=== PATIENT | male | born 1950 | race Caucasian/White ===

== ENCOUNTER 2018-07-10 21:45 | Inpatient (IN) | payer BC, MEDICARE ==
[2018-07-10 22:11] LABS: #Eosinphils 0.2 thou/uL (0.0-0.7); #Monocytes 0.7 thou/uL (0.11-0.59); #Neutrophils 5.4 thou/uL (1.40-6.50); %Basophils 0.5 % (0.0-1.0); %Eosinophils 2.2 % (0.0-10.0); %Lymphocytes 23.8 % (21.0-51.0); %Monocytes 8.9 % (0.0-10.0); %Neutrophils 64.6 % (42.0-75.0); Hemoglobin 15.4 g/dL (14.0-18.0); Mean Corpuscular HGB CONC 36.2 g/dL (32.0-36.0); Mean Corpuscular Hemoglobin 34.8 pg (27.0-31.0); Mean Corpuscular Volume 96.1 fL (78.0-98.0); Mean Platelet Volume 9.4 fL (7.4-10.4); Platelet Count 150 thou/uL (130-400); RBC Distribution Width 12.3 % (11.5-14.5); Red Blood Cell (RBC) Count 4.43 mill/uL (4.70-6.10); White Blood Cell (WBC) Count 8.3 thou/uL (4.8-10.8)
[2018-07-10 22:17] LABS: PTT 26.1 SEC (22.9-36.1); Prothrombin Time 12.9 SEC (12.0-14.7)
--- NOTE | 2018-07-10 22:17 | CT ---
CT HEAD WITHOUT CONTRAST: 07/10/18 Multiple axial tomograms obtained through the head without IV enhancement. INDICATIONS: Possible stroke. No comparison. FINDINGS: There is a predominantly cystic mass in the left cerebral hemisphere which appears centered in the le ft basal ganglia measuring up to 3.7 cm. There is internal density which suggests internal hemorrhage . Possible some peripheral hemorrhage. There is abnormal density extending inferior to involve the me dial temporal lobe. There is vasogenic edema primarily involving the left frontal lobe. There is mass effect with midline shift measured at 4 mm at the septum pellucidum. Sinuses and mastoids are clear. IMPRESSION: Mass in the left cerebral hemisphere which is centered in the left basal ganglia with surrounding vas ogenic edema and internal hemorrhage and extension into the left medial temporal lobe producing mass effect and mild midline shift. MRI with contrast is recommended to further evaluate. Findings relayed to Dr. De Jesus. POS: [facility]
[2018-07-10] MEDS ORDERED: Dexamethasone 10 MG/ML VIAL ONE (22:21)
[2018-07-10 22:35] LABS: ALT (SGPT) 57 U/L (8-55); AST (SGOT) 58 U/L (5-34); Albumin 4.2 g/dL (3.4-4.8); Alkaline Phosphatase 85 U/L (40-150); Anion Gap 19 mmol/L (10-20); BUN (Urea Nitrogen) 14 mg/dL (8.4-25.7); Bilirubin, Total 0.9 mg/dL (0.2-1.2); CK (CPK) 123 U/L (30-200); Calc. Creatinine Clearance 0 mL/min (70-130); Calcium 9.3 mg/dL (7.8-10.44); Carbon Dioxide 22 mmol/L (23-31); Chloride 99 mmol/L (98-107); Estimated GFR-MDRD 83; Glucose 100 mg/dL (80-115); Potassium 4.3 mmol/L (3.5-5.1); Protein, Total 7.2 g/dL (5.8-8.1); Sodium 136 mmol/L (136-145)
--- NOTE | 2018-07-10 22:35 | RAD ---
AP CHEST: 07/10/18 HISTORY: Weakness. Lungs appear clear of infiltrate. Heart size is upper normal. Vasculature upper normal. IMPRESSION: No acute lung process. POS: [facility]
[2018-07-10] MEDS ORDERED: Ondansetron PF 4 MG/2 ML Vial IVP PRN (22:56)
[2018-07-10] MEDS ORDERED: niCARdipine 25 MG in Sodium Chloride 0.9% 250 ML 240 ML IVPB PRN (22:56)
[2018-07-10] MEDS ORDERED: Acetaminophen 650 MG in Premix Bag 1 BAG IVPB PRN (23:01)
[2018-07-10 23:28] LABS: Bilirubin Negative (Negative); Blood, Urine Negative (Negative); Clarity CLEAR (Clear); Glucose, Urine (Dipstick) Negative (Negative); Leukocyte Negative (Negative); Nitrite Negative (Negative); Protein, Urine (Dipstick) Negative (Neg-Trace)
[2018-07-11] MEDS: Sodium Chloride 0.9% 1,000 ML IV SCH ×2 (00:15→13:23)
--- NOTE | 2018-07-11 03:05 | HP ---
This is Ling Queen PA-C dictating a report for Reji Rivera MD. HISTORY OF PRESENT ILLNESS: The patient is a 68-year-old male, who presented to the emergency room per EMS after being found down. History is primarily obtained per ER team, EMS and a family friend at the bedside. Reportedly patient was last heard from around 7:00 p.m. anderson and his family reports they noticed some slurred speech at that time. Not long after that, they sent up for a well check and the patient was found down on his back porch. He was brought by EMS to [facility] for further evaluation. On arrival, a CT noncontrast of the head was done, which was notable for a large left-sided cystic mass centered near the basal ganglia with surrounding vasogenic edema, hemorrhagic component and approximately 4 mm of midline shift from left to right. The patient's coagulation factors were normal and he had a normal platelet count. His GCS on arrival was 14. He lost 1 point for confusion. Neurosurgery was consulted for further evaluation and management of this patient. I presented to the emergency department promptly shortly after the patient's arrival. He was slightly confused, but was able to tell me his name and location. He had obvious right-sided facial droop and right-sided weakness, dysarthria and expressive aphasia. He was unable to express any particular complaints. He was able to nod his head yes and reports that he takes a baby aspirin at home. History was limited by the patient's current condition. PAST MEDICAL HISTORY: Per medical record, hypertension, hyperlipidemia. PAST SURGICAL HISTORY: No prior surgical history is listed. SOCIAL HISTORY: The patient is reportedly a daily drinker. Drinks approximately 12 beers daily. He is a tobacco user. Smokes one 1/2 pack per day. ALLERGIES: NO KNOWN DRUG ALLERGIES. REVIEW OF SYSTEMS: Unobtainable. PHYSICAL EXAMINATION: VITAL SIGNS: BP is 134/76, pulse 66, respirations 18, the patient is 96% on room air, his temperature is 98.1. CONSTITUTIONAL: The patient has GCS of 14. He loses 1 point for slight confusion. HEENT: Head, normocephalic and atraumatic. Eyes, pupils are equal and reactive to light. Extraocular movements are intact. ENT, his oral mucosa is pink and moist. He has abnormal speech. Dysarthria appreciated. Right-sided facial droop is noted. NECK: Free active range of motion. No meningismus or nuchal rigidity. CARDIOVASCULAR: Regular rate and rhythm. RESPIRATORY: Symmetric chest expansion. No evidence of dyspnea or respiratory distress. MUSCULOSKELETAL: He has good muscle tone to bilateral upper and lower extremity. Peripheral pulses are symmetric and intact. There is no obvious deformity. He has slight right-sided weakness in the right upper extremity, right lower extremity, which is diffuse. Drift is 1/4 on the right, in both the upper extremity and the lower extremity. He is generally hyporeflexive throughout. NEUROLOGIC: He is oriented to person and birthday. He is unable to tell me his location or the box car checker. He is noted to have dysarthria and expressive aphasia. He has right-sided facial droop and diffuse right-sided weakness. ASSESSMENT AND PLAN: This is a 68-year-old male, who was found to have acute speech changes and right-sided weakness, and found to have a left-sided intracranial mass centered on near the basal ganglia with surrounding vasogenic edema, hemorrhagic component, midline shift. He was treated with 10 mg of Decadron in the ER and I will continue this 4 to 6. I have added a famotidine b.i.d. for gastrointestinal protection. We will plan to admit to the CCU for q.1 neuro checks. Head of the bed will be elevated to 30 degrees and systolic blood pressure should be monitored closely with goal of less than 140. We will plan to evaluate this mass further with MRI of the brain with and without contrast. Also, repeat an a.m. CT to assess any change in the hemorrhagic component. I have ordered a CT of the chest, abdomen, and pelvis in addition to assess for any other additional lesions as this may indicate a metastatic lesion versus primary. I have consulted the hospitalist for assistance in medical management and critical care considering the patient is going to the ICU at this time. I have discussed this plan with Dr. Rivera, who is in agreement. Job ID: [id number]
[2018-07-11 04:41] LABS: #Monocytes 0.2 thou/uL (0.11-0.59); #Neutrophils 7.6 thou/uL (1.40-6.50); %Basophils 0.4 % (0.0-1.0); %Eosinophils 0.2 % (0.0-10.0); %Lymphocytes 11.3 % (21.0-51.0); %Monocytes 2.1 % (0.0-10.0); Mean Corpuscular HGB CONC 34.5 g/dL (32.0-36.0); Mean Corpuscular Volume 98.5 fL (78.0-98.0); Mean Platelet Volume 9.4 fL (7.4-10.4); Platelet Count 143 thou/uL (130-400); RBC Distribution Width 12.3 % (11.5-14.5); White Blood Cell (WBC) Count 8.9 thou/uL (4.8-10.8)
[2018-07-11 04:59] LABS: Anion Gap 16 mmol/L (10-20); BUN (Urea Nitrogen) 13 mg/dL (8.4-25.7); Calc. Creatinine Clearance 97 mL/min (70-130); Calcium 9.8 mg/dL (7.8-10.44); Carbon Dioxide 24 mmol/L (23-31); Chloride 101 mmol/L (98-107); Estimated GFR-MDRD 80; Glucose 119 mg/dL (80-115); Potassium 4.1 mmol/L (3.5-5.1); Sodium 137 mmol/L (136-145)
[2018-07-11] MEDS: Dexamethasone 4 mg/ml Vial SLOW IVP SCH ×3 (06:28→18:01)
--- NOTE | 2018-07-11 06:31 | CON ---
DATE OF CONSULTATION: CHIEF COMPLAINT: Right-sided weakness, slurred speech. HISTORY OF PRESENT ILLNESS: The patient is a 68-year-old male with past medical history of hypertension, hyperlipidemia, who presented to the hospital for a right-sided weakness and slurred speech. The patient's employer who is at the bedside stated that the patient took off since last Sunday since he was not feeling well. However, prior to that he had noticed the patient having some stiffness and also had some minor cognitive impairment. The patient's employer also stated that he has been checking up on the patient every day this week; however on the patient left his employer about 4 or 5 messages, which were similar and at that time, the employer was suspicious that there was something going on with the patient, so he came in to see the patient today. The employer described the patient standing on the porch, acting very strange with some slurred speech and the patient kept asking the employer to leave him alone and to leave. At this time, the employer left, called the son who was also concerned about the patient's slurred speech. At this time, the police were called and later on the EMS were called. It was also stated by the EMS that the patient had a fall on his back porch. The patient currently is awake, to self. PAST MEDICAL HISTORY: Hypertension, hyperlipidemia. PAST SURGICAL HISTORY: The patient unable to provide a surgical history, unknown. SOCIAL HISTORY: The patient drinks daily beer and also smokes half a pack of tobacco. He is unable to provide me the code status at this point. He lives with his , who is on a cruise with his daughter currently and the son lives in [place]. ALLERGIES: HE HAS NO KNOWN DRUG ALLERGIES. REVIEW OF SYSTEMS: Unable to obtain. FAMILY HISTORY: Unable to obtain. PHYSICAL EXAMINATION: VITAL SIGNS: Temperature of 98.1, blood pressure 134/76, pulse of 66, 18, 96% on room air. GENERAL: He is awake, oriented to self. He is confused. HEENT: Normocephalic, atraumatic. No lymphadenopathy noted. Pupils are equal and reactive to light. His tongue has a pretty significant black and hairy appearance. CV: S1, S2 present. No murmurs, rubs, or gallops. LUNGS: Clear to auscultation. No rhonchi or wheezes noted. ABDOMEN: Soft and nontender. Bowel sounds are present x2. NEUROVASCULAR: He does have some weakness to his right upper extremity and right lower extremity. He does have some facial droop on his right side. He knows who he is. He knows what month we are in and his birthday. However, he is unable to tell me the President and also he has some dysarthria and expressive aphasia. LABORATORY RESULTS: As of the following; WBCs of 8.9, hemoglobin of 16.0, hematocrit of 46.3, platelets of 143. Chemistry: Sodium 137, potassium of 4.1, BUN of 13, creatinine 0.94. Urine is negative. IMAGING: The patient did have a CT brain, which indicated mass in the left cerebrum hemisphere, which is centered in the left basal ganglia with surrounding vasogenic edema and internal hemorrhage and extension into the left medial temporal lobe producing mass effect and mild midline shift. The patient also had a chest x-ray, which did not indicate any acute processes. ASSESSMENT AND PLAN: 1. The patient is a very pleasant 68-year-old male, who presents to the hospital with slurred speech and right-sided weakness. Hypertension. Currently, his blood pressure is controlled. We will ask family to bring in the patient's blood pressure medication for further control per neurosurgery. 2. Hyperlipidemia. We will start his medications once family brings in his medications. 3. New left-sided cerebral mass. The patient has already been ordered a CT of abdomen and pelvis and also will be on Decadron and Neurosurgery has been consulted. We will also get an MRI brain in the morning. 4. Mild elevated liver function tests. We will recheck it in the morning. If not, may recommend checking hepatitis panel. 5. Deep venous thrombosis prophylaxis. We will put the patient on sequential compression devices. Job ID: [id number]
[2018-07-11 06:49] LABS: ALT (SGPT) 56 U/L (8-55); AST (SGOT) 48 U/L (5-34); Albumin 4.2 g/dL (3.4-4.8); Alkaline Phosphatase 85 U/L (40-150); Bilirubin, Direct 0.5 mg/dL (0.1-0.3); Protein, Total 7.1 g/dL (5.8-8.1)
--- NOTE | 2018-07-11 07:38 | CT ---
PRELIMINARY REPORT/[facility]/EMERGENCY AFTER HOURS PROCEDURE: EXAM: CT Head Without Contrast EXAM DATE/TIME: 07/11/2018 3:57 AM CLINICAL HISTORY: 68 years old, male; Abnormal findings; Abnormal radiologic findings of head/skull; Intracranial mass / space-occupying lesion; Patient HX: No previous. . . Initially brought to er as a level 1 stroke. . . Transfered to ccu c8. . . Additional history obtained from EMS, m69 presents to ED via EMS C/O possib le CVA. Per EMS, PT was found in a tipped over lawn chair on back porch w/ rue weakness, rsided facia l droop, and slurred speech. Lsn unknown; Last time PT spoke to someone was around 19:00 and PT did have slurred speech (son reports very minimally). EMS reports PT has progressed to g lobal aphasia but is a&ox4 and shaking head yes/no appropriately to questions. TECHNIQUE: Imaging protocol: Axial computed tomography images of the head without contrast. COMPARISON: No relevant prior studies available. FINDINGS: Brain: Mild thickening-hyperdensity 2.6 x 2.9 cm x 3 cm area of the medial cortex left temporal lobe. Mild prominence of the cerebral sulci and ventricles. Mild low density changes within the white matte r bilaterally. Cerebellum atrophic; otherwise, posterior fossa structures within normal limits. Midline shift: Mild approximately 4 mm [id number] midline shift at the level of the septum pelluci dum related to edema from hematoma. Ventricles: Normal. No ventriculomegaly. Bones/joints: Unremarkable. No acute fracture. Sinuses: Visualized sinuses are unremarkable. No fluid levels. Mastoid air cells: Visualized mastoid air cells are well aerated. No mastoid effusion. Soft tissues: Round 3.6 x 3.5 x 4.5 cm fluid-fluid level, hematoma within the right basal ganglia and mild surrounding edema, per patient history. IMPRESSION: 1. Round 3.6 x 3.5 x 4.5 cm fluid-fluid level, hematoma within the right basal ganglia and mild surro unding edema, per patient history. (Underlying mass cannot be entirely excluded, followup is recommen ded.) 2. Mild approximately 4 mm [id number] midline shift at the level of the septum pellucidum related to edema from hematoma. 3. Mild thickening-hyperdensity 2.6 x 2.9 cm x 3 cm area of the medial cortex left temporal lobe. -- Possible underlying mass. Followup with MRI is highly recommended for better evaluation. 4. Mild cerebral atrophy. 5. 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 Thank you for allowing us to participate in the care of your patient. Dictated and Authenticated by: Willian Kinsey MD 07/11/2018 4:39 AM Central Time ([place] & [place]) FINAL REPORT I disagree with the preliminary report provided. There is a large hypodense mass with a hemorrhage fluid level in the LEFT basal ganglia centered with in the LEFT globus pallidus with some mild surrounding vasogenic edema. There is an additional hyper dense mass within the atrium of the LEFT lateral ventricle that is stable measuring 4.3 cm. The hypo dense mass with hemorrhage layer measures 2.9 cm, when accounting for slight differences of technique is stable. An additional hyperdense cortically based mass is seen involving the inferior LEFT front al lobe measuring approximately 3 cm, which is stable with some surrounding vasogenic edema. The lef t to right midline shift is stable from the comparison performed on 07/10/2018 at 9:50 p.m. measuring approximately 4.3 to 4.4 mm. The basilar cisterns remain patent. The skull is intact. POS: [facility]
--- NOTE | 2018-07-11 07:48 | CT ---
PRELIMINARY REPORT/[facility]/EMERGENCY AFTER HOURS PROCEDURE: EXAM: CT Chest With Contrast EXAM DATE/TIME: 07/11/2018 4:03 AM CLINICAL HISTORY: 68 years old, male; Signs and symptoms; Other: Possible mass noted on brain CT, R/O metastatic lesion ; Patient HX: No previous. . . Initially brought to er as a level 1 stroke. . . Transfered to ccu c8. Additional history obtained from EMS, m69 presents to ED via EMS C/O possible CVA. Per EMS, PT was f ound in a tipped over lawn chair on back porch w/ rue weakness, r-sided facial droop, and slurred spe ech. Lsn unknown; Last time PT spoke to someone was around 19:00 and PT did have slurred speech (son reports very minimally). EMS reports PT has progressed to global aphasia but is a&ox4 and shaking hea d yes/no appropriately to questions. TECHNIQUE: Imaging protocol: Axial computed tomography images of the chest with intravenous contrast. Coronal re formatted images were created and reviewed. COMPARISON: No relevant prior studies available. FINDINGS: Lungs: No evidence endobronchial lesion. Mild bilateral lower lobe dependent air space opacityatelect asis/scarring. Pleural space: No evidence of pneumothorax. Heart: Heart appears within normal limits, no pericardial effusion. No evidence of filling defects in the cardiac chambers. Aorta: No evidence of thoracic aortic dissection. 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 Chronic atherosclerotic calcification of the vasculature. Lymph nodes: Few subcentimeter mediastinal lymph nodes. Bones/joints: Musculoskeletal structures appear intact. Multi-level degenerative changes involve the thoracic spine. Soft tissues: Unremarkable. Other findings: No evidence of focal mass. IMPRESSION: 1. No evidence of focal mass. 2. No evidence of thoracic aortic dissection. 3. 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 4. Mild bilateral lower lobe dependent air space opacity-atelectasis/scarring. EXAM: CT Abdomen and Pelvis With Contrast EXAM DATE/TIME: 07/11/2018 4:03 AM CLINICAL HISTORY: 68 years old, male; Signs and symptoms; Other: Possible mass noted on brain CT, R/O metastatic lesion ; Patient HX: No previous. . Initially brought to er as a level 1 stroke. Transfered to ccu c8. Addit ional history obtained from EMS, m69 presents to ED via EMS C/O possible CVA. Per EMS, PT was found i n a tipped over lawn chair on back porch w/ rue weakness, r-sided facial droop, and slurred speech. L sn unknown; Last time PT spoke to someone was around 19:00 and PT did have slurred speech (son report s very minimally). EMS reports PT has progressed to global aphasia but is a&ox4 and shaking head yes/ no appropriately to questions. TECHNIQUE: Imaging protocol: Axial computed tomography images of the abdomen and pelvis with intravenous contras t. Coronal reformatted images were created and reviewed. COMPARISON: No relevant prior studies available. FINDINGS: ABDOMEN: Liver: Suspected fatty infiltration of the liver. Gallbladder and bile ducts: Gallbladder appears contracted, limits evaluation. Pancreas: Normal. No ductal dilation. Spleen: Normal. No splenomegaly. Adrenals: Normal. No mass. Kidneys and ureters: Normal. No hydronephrosis. Stomach and bowel: Mild scattered colonic diverticulosis. No radiographic signs of associated inflamm ation. No evidence of bowel obstruction. Appendix: Appendix - visualized portions appear normal. PELVIS: Bladder: Unremarkable as visualized. Reproductive: Prostate appears within normal limits. ABDOMEN and PELVIS: Intraperitoneal space: Normal. No free air. No significant fluid collection. Bones/joints: No acute fracture. No dislocation. Soft tissues: Increased fat in bilateral inguinal canals- small inguinal hernias. Vasculature: Mild 2.6 cm ectasia infrarenal abdominal aorta. Lymph nodes: Normal. No enlarged lymph nodes. Other findings: No evidence of focal masses or lesions. IMPRESSION: 1. No evidence of focal masses or lesions. 2. Suspected fatty infiltration of the liver. 3. Mild scattered colonic diverticulosis. No radiographic signs of associated inflammation. 4. No evidence of bowel obstruction. Thank you for allowing us to participate in the care of your patient. Dictated and Authenticated by: Willian Kinsey MD 07/11/2018 4:42 AM Central Time ([place] & [place]) FINAL REPORT EMERGENCY AFTER HOURS CT CHEST AND ABDOMEN AND PELVIS: I disagree with the preliminary report provided by [facility]. There are minimally displaced right L3 and L2 transverse process fractures not discussed in the preli minary report. No focal pulmonary contusion is evident. There is a 9 mm pulmonary nodule within the superior segmen t of the right lower lobe. There is subsegmental volume loss involving both lungs. No pleural effus ion or pneumothorax is evident. There is scattered vascular calcification along the thoracic and cor onary arteries. No enlarged mediastinal lymph nodes are evident. No definite solid organ injury is seen involving the abdomen or pelvis. No free fluid or enlarged ly mph nodes are evident. There are moderate calcifications involving the abdominopelvic vasculature. There are scattered colonic diverticula. No additional acute abnormality is evident outside of the right L3 and L2 transverse processes. Ther e is scattered and osteoarthritic change. IMPRESSION: 1. Right L2 and L3 transverse process fracture. No additional traumatic injury demonstrated. 2. A 9 mm pulmonary nodule within the superior segment of the right lower lobe. 3. Bilateral bibasilar atelectasis. Other chronic findings as above. POS: [facility]
--- NOTE | 2018-07-11 08:57 | MRI ---
MRI Brain W WO Con: 07/11/2018 12:00 AM CLINICAL HISTORY: Intracranial lesions, neurologic deficit.. COMPARISON: Recent head CT exams are referenced. FINDINGS: Multifocal intracranial enhancing lesions are present, one of which is centered at the left middle cr anial fossa, with avid enhancement, axial diameter of which measures 2.9 cm producing adjacent vasogenic edema at its cephalad margin, within the left frontal lobe. There is an additional cortical based medial left temporal lobe lesion, lobular in morphology, with avid enhancement, with largest axial dimension in an AP orientation of 4.3 cm. These lesions demonstrate internal stippled susceptib ility artifact. There is adjacent mild intraventricular hemorrhagic susceptibility, as well. In addition to these lesions, there is an intra-axial rounded cavitary, hemorrhagic lesion with peripher al enhancement, as well as subtle areas of internal enhancement, measuring 3.4 cm in largest axial diameter, situated within the left basal ganglia. This does result in rightward deviation of midline structures, measuring 5 mm at level of septum pellucidum. Superimposed microvascular ischemic disease is present. There is no acute territorial infarction. Abo ve-described solid lesions demonstrate mild restriction. IMPRESSION: Multifocal intracranial lesions occupying left cerebral hemisphere with associated hemorrhage, indica tive of hemorrhagic metastases. There is associated mass effect, with rightward subfalcine herniation as well as mild intraventricular hemorrhagic extension. Transcribed Date/Time: 07/11/2018 9:09 AM
[2018-07-11] MEDS: Famotidine/PF 20 mg/2ml Vial SLOW IVP SCH ×2 (09:50→20:10)
--- NOTE | 2018-07-11 11:05 | PDOC.PULCN ---
Pulmonology Consult: HPI - Date of Consult Date: 07/11/18 Time: 08:45 - Consult Details Reason for Consult: Critical Care Management - History of Present Illness HPI: SANJU BENNETT JR is a 68 year-old M who came to ER after finding him down yesterday. Pt has hard time with word finding. Unable to get full history. Obtained hx from previous documents and family. Pt family stated that he had some slurred speech. Pt reports not feeling well the last week. Per history from his employer on other history he had noticed maybe some lapse in thought and noticed some stiffness the last week. He had been checking on him and noticed him acting strange and having slurred speech. Pt is up in bed. He denies any chest pain or SOB. Pt denies any abdominal pain. Denies any n/v/d/c. Pt denies any fever or chills. Pulmonology Consult: ROS - Review of Systems All systems: reviewed and no additional remarkable complaints except as stated Constitutional: negative: fever, chills Cardiovascular: negative: chest pain, palpitations Respiratory: negative: cough, chest tightness, productive cough, short of breath Pulmonology Consult: PMH Source: patient, family Past Medical History: PMH: Hypertension, Hyperlipidemia, Chronic Pain PShx: Knee Surgery - Family History Pertinent family history: Noncontributory at this time - Social History Smoking Status: Current every day smoker (1/2 pack) Alcohol Use: heavy (12 beers daily) Drug Use History: pt denies any use Living Situation: independent Pulmonology Consult: Meds - Medications MAR Reviewed: Yes Medications: Current Medications Dexamethasone (Decadron) 4 mg SLOW IVP Q6HR [facility] Last Admin: 07/11/18 06:28 Dose: 4 mg Famotidine (Pepcid) 20 mg SLOW IVP Q12HR [facility] Last Admin: 07/11/18 09:50 Dose: 20 mg Acetaminophen 650 mg/ Device 65 mls @ 400 mls/hr IVPB Q6H PRN PRN Reason: Fever > 101 Stop: 07/11/18 23:02 Nicardipine HCl 25 mg/ Sodium (Chloride) 250 mls @ 0 mls/hr IVPB INF PRN; Protocol PRN Reason: SBP >140 Sodium Chloride (Normal Saline 0.9%) 1,000 mls @ 80 mls/hr IV .[id number] [facility] Last Admin: 07/11/18 00:15 Dose: 1,000 mls Ondansetron HCl (Zofran) 4 mg IVP BIDPRN PRN PRN Reason: Nausea/Vomiting Sodium Chloride (Flush - Normal Saline) 10 ml IVF PRN PRN PRN Reason: Saline Flush - Allergies Allergies/Adverse Reactions: Allergies Allergy/AdvReac Type Severity Reaction Status Date / Time No Known Drug Allergies Allergy Unverified 07/10/18 23:07 Pulmonology Consult: PE - Physical Exam Constitutional: NAD HEENT: PERRLA, oral pharynx no lesions Neck: no nodes, no JVD, supple, full ROM Cardiovascular: RRR, no significant murmur, no rub Respiratory: rhonchi Focused Respiratory Location: rhonchi: Lower, Left, Right Gastrointestinal: soft, non-tender, no distention, positive bowel sounds Musculoskeletal: no edema, pulses present Neurological: normal sensation. negative: non-focal (Pt able to follow commands. Pt has hard time with word finding. Unable to fully answer questions at times. Speech slurred.), moves all 4 limbs (Pt moves all 4 limbs. Pt slower to move Right side leg and arm. Strenght 4/5 in RUE and RLE.) Deviation from normal: Pt has R. sided facial droop. Sensation reported intact face/LE/UE Psychiatric: normal affect, A&O x 3 Skin: no rash, cap refill <2 seconds Pulmonology Consult: Results - Labs Result Diagrams: 07/11/18 04:26 07/11/18 04:26 - EKG Data EKG Interpreted by Myself EKG shows normal: sinus rhythm Rate: normal - Radiology Interpretation CT scan - head Status: image reviewed by me, report reviewed by me (Mass in L. cerebral hemisphere which is centered in the left basal ganglia w/ surrounding vasogenic edema and internal hemorrhage and extension into the left medial temporal lobe producing mass effect and mild midline shift) CT scan - chest Status: image reviewed by me, report reviewed by me Additional comments: No evidence of focal mass, thoracic aortic dissection. 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 Mild bilateral lower lobe dependent air space opacity- atelectasis/scarring. A 9 mm pulmonary nodule w/n superior segment of RLL. Bilateral Bibasilar atelectasis. R. L2-L3 transverse process fx. Chest x-ray Status: image reviewed by me, report reviewed by me (No acute process) CT scan - abdomen Status: image reviewed by me, report reviewed by me Additional comments: No evidence of focal masses or lesion, Suspected fatty infiltration of the liver , Mild scattered colonic diverticulosis. No evidence bowel obstruction Pulmonology Consult: A/P - Problem (1) Neoplasm of brain causing mass 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 structures Current Visit: Yes Code(s): D49.6 - NEOPLASM OF UNSPECIFIED BEHAVIOR OF BRAIN Status: Acute (2) Hypertension Current Visit: Yes Code(s): I10 - ESSENTIAL (PRIMARY) HYPERTENSION Status: Acute (3) Hyperlipidemia Current Visit: Yes Code(s): E78.5 - HYPERLIPIDEMIA, UNSPECIFIED Status: Acute (4) Tobacco abuse Current Visit: Yes Code(s): Z72.0 - TOBACCO USE Status: Acute (5) Alcohol abuse Current Visit: Yes Code(s): F10.10 - ALCOHOL ABUSE, UNCOMPLICATED Status: Acute - Time Time: 50% of the time was spent in coordination of care (as documented) at patient's floor/unit and/or counseling patient. Time with Patient: greater than 70 minutes - Plan Plan: New left sided cerebal mass with hemorrhage and mass effect. Pt on dexamethasone to help with swelling. On cardene drip to control blood pressures w/n parameters for Neurosurgery. Neurosurgery consulted. Pt recently had MRI. Read pending. Official read of CT scan shows 9 mm Pulm nodule. May need to biopsy. For his hypertension being controlled per above. Will give famotidine for GI ppx. PT/OT/Speech on board. Pt will need q1 neurochecks and close monitoring for the time being. Addendum - Attending - Attending Attestation Date/Time: 07/11/18 1500 I personally evaluated the patient and discussed the management with Dr. Storey. I agree with the History, Examination, Assessment and Plan documented above with any addition or exceptions noted below. IPH, stable. Interracial mass, currently under investigation. 70 minutes have been devoted to this patient in various activities. I personally reviewed all imaging studies and laboratory data noted within this document. For fifty percent of this time, I was interacting with the patient at the bedside or coordinating care with the care team. For the remainder of the time I was immediately available to the patient in the hospital unit.
--- NOTE | 2018-07-11 16:44 | PRG ---
DATE OF SERVICE: SUBJECTIVE: The patient is seen and examined. I agree with Ling Bret's evaluation on 07/10/2018. The patient is a 68-year-old man admitted for relatively sudden onset of dysphagia and right hemiparesis. PHYSICAL EXAMINATION: Today, he is alert and interactive, but is disoriented to date and has poor word finding. He has a moderate right hemiparesis. IMAGING STUDIES: Including a recent MRI scan reveals 3 intracranial lesions on the left side. The middle lesion is in the region of the basal ganglia and shows evidence of acute hemorrhage with some local mass effect. There are some signs of chronic hemorrhage in all [address] of the chest, abdomen, and pelvis was negative. IMPRESSION AND PLAN: The patient has 3 intracranial lesions all of which are partially hemorrhagic and he is currently symptomatic from some new hemorrhage in the central lesion. Differential diagnosis includes metastatic disease or unusual primary tumor. Metastatic disease is far more likely. Given the failure of the CT chest, abdomen, and pelvis to find a primary lesion, I expect we will need to proceed with stereotactic biopsy. I would like to wait several days for him to recover from this recent hemorrhagic episode, for his aspirin to wear off, and for his family to get back in town from a cruise that they are on. We will continue with Decadron for now and begin a swallow evaluation and see if we can advance his diet. We will also transfer to the floor. Job ID: [id number]
[2018-07-11] MEDS ORDERED: niCARdipine 25 MG in Sodium Chloride 0.9% 250 ML 240 ML IVPB PRN (20:52)
[2018-07-12] MEDS: Sodium Chloride 0.9% 1,000 ML IV SCH ×2 (00:43→05:04)
[2018-07-12] MEDS: Dexamethasone 4 mg/ml Vial SLOW IVP SCH ×4 (00:44→17:50)
[2018-07-12] MEDS: Famotidine/PF 20 mg/2ml Vial SLOW IVP SCH ×2 (09:14→22:37)
--- NOTE | 2018-07-12 10:07 | PRG ---
DATE OF SERVICE: 07/12/2018 The patient is a 68-year-old male, who was recently admitted for acute onset presbyphagia and right-sided hemiparesis. His MRI was notable for three intracranial lesions, suspicious for metastatic disease. CT chest, abdomen, and pelvis was all negative. He has been monitored closely in the ICU and has had some improvement in symptoms with IV Decadron. He has been intermittently required Cardene for BP control. On exam this morning, the patient is in awake and alert. He is oriented to person and his birthday. He has difficulty with word-finding. He continues to have some mild right-sided hemiparesis, but this appears improved today compared to my prior exams. We will plan to continue to monitor the patient closely. Continue his Decadron 4 mg q.6h, protection with famotidine. Once his blood pressure is well controlled and off Cardene, he could be transferred to the ICU or to the floor. If he goes to the floor, he will likely require sitter due to his impulsivity. Medical Service is assisting with his blood pressure and other medical management. We will plan to do a left-sided stereotactic brain biopsy of his lesions on Sunday. I have ordered consent and he will be made n.p.o. at midnight on Sunday. Job ID: [id number]
--- NOTE | 2018-07-12 12:18 | PRG ---
DATE OF SERVICE: 07/12/2018 SERVICE: Pulmonary Medicine. INTERVAL HISTORY: The patient is doing fine from respiratory standpoint. Breathing comfortably. He has no complaints of chest pain, fevers, chills, cough, nausea , or vomiting. He has a good appetite. Otherwise, there has been no interval change to his condition. He feels that neurologic deficit is roughly stable if not slightly improved. PHYSICAL EXAMINATION: VITAL SIGNS: Afebrile, pulse 73, blood pressure 124/70, respirations 17, and saturation 95% on room air. GENERAL: The patient is awake and alert, in no apparent distress. LUNGS: Decent air entry without any prolonged expiratory phase or wheezing present. HEART: Normal rate and regular. ABDOMEN: Soft, nontender, nondistended. Bowel sounds are positive. MUSCULOSKELETAL: No cyanosis or clubbing. No pitting in the bilateral lower extremities. NEUROLOGIC: He has hemiparesis on the right upper and lower extremity, and some difficulty with speech. Otherwise, he remains oriented x3. IMAGING DATA: MRI of the brain demonstrates multifocal intracranial lesions occupying the left cerebral hemisphere with hemorrhagic transformation and associated mass effect and mild herniation of the subfalcine region. CT of the chest, abdomen, and pelvis did not demonstrate any obvious primary site. There is an incidentally discovered small pulmonary nodule. ASSESSMENT: 1. Intracranial mass. 2. Intraparenchymal hemorrhage. DISCUSSION AND PLAN: The patient is going to be transitioned to the Stroke Unit. When he arrives in the stroke unit, he will have no further requirements for inpatient Pulmonary or Critical Care opinion, I will sign off. Please call with additional questions or concerns through time. Job ID: [id number] [facility]
--- NOTE | 2018-07-12 16:37 | PDOC.PN ---
- Subjective Encounter Start Date: 07/12/18 Encounter Start Time: 10:00 Pt seen for followup re: brain metastases. says he feels well, no complaints. - Objective MAR Reviewed: Yes Vital Signs & Weight: Vital Signs (12 hours) Temp Pulse Ox 07/12/18 12:00 98.0 F 07/12/18 08:00 97.9 F 95 Weight Weight 201 lb 0.985 oz Most Recent Monitor Data Heart Rate from ECG 64 NIBP 128/72 NIBP BP-Mean 90 Respiration from ECG 9 SpO2 93 I&O: 07/11/18 07/12/18 07/13/18 06:59 06:59 06:59 Intake Total 417 2094 540 Output Total 500 2090 690 Balance -83 4 -150 Result Diagrams: 07/11/18 04:26 07/11/18 04:26 EKG Reviewed by me: Yes (Tele: NSR) Phys Exam - Physical Examination Constitutional: NAD HEENT: moist MMs Neck: supple Respiratory: clear to auscultation bilateral Cardiovascular: RRR Gastrointestinal: soft Neurological: moves all 4 limbs Psychiatric: normal affect Dx/Plan (1) Neoplasm of brain causing mass 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 structures Code(s): D49.6 - NEOPLASM OF UNSPECIFIED BEHAVIOR OF BRAIN Status: Acute Comment: Pt to have stereotactic biopsy next week. Pt has lung nodule, also has h/o melanoma. (2) Hypertension Code(s): I10 - ESSENTIAL (PRIMARY) HYPERTENSION Status: Chronic Comment: BP improved, off of Cardene drip. Resume home medications, monitor vital signs and titrare antihypertensives as needed. (3) Hyperlipidemia Code(s): E78.5 - HYPERLIPIDEMIA, UNSPECIFIED Status: Chronic Comment: continue atorvastatin - Plan * . Review of Systems - Review of Systems Cardiovascular: negative: chest pain, palpitations, orthopnea, paroxysmal nocturnal dyspnea, edema, light headedness Gastrointestinal: negative: Nausea, Vomiting, Abdominal Pain, Diarrhea, Constipation, Melena, Hematochezia - Medications/Allergies Allergies/Adverse Reactions: Allergies Allergy/AdvReac Type Severity Reaction Status Date / Time No Known Drug Allergies Allergy Unverified 07/10/18 23:07 Medications: Current Medications Allopurinol (Zyloprim) 200 mg PO DAILY [facility] Amlodipine Besylate (Norvasc) 10 mg PO DAILY [facility] Atorvastatin Calcium (Lipitor) 40 mg PO DAILY [facility] Dexamethasone (Decadron) 4 mg SLOW IVP Q6HR [facility] Last Admin: 07/12/18 13:00 Dose: 4 mg Famotidine (Pepcid) 20 mg SLOW IVP Q12HR [facility] Last Admin: 07/12/18 09:14 Dose: 20 mg Hydrochlorothiazide (Hydrochlorothiazide) 12.5 mg PO DAILY [facility] Sodium Chloride (Normal Saline 0.9%) 1,000 mls @ 80 mls/hr IV .[id number] [facility] Last Admin: 07/12/18 05:04 Dose: 1,000 mls Nicardipine HCl 25 mg/ Sodium (Chloride) 250 mls @ 0 mls/hr IVPB INF PRN; Protocol PRN Reason: SBP >140 Cefazolin Sodium/Dextrose 2 gm (/ Device) 50 mls @ 100 mls/hr IVPB ONCALL-OR [facility] Stop: 07/15/18 17:00 Cefazolin Sodium/Dextrose 2 gm (/ Device) 50 mls @ 100 mls/hr IVPB Q8HR [facility] Stop: 07/15/18 22:29 Nebivolol (Bystolic) 10 mg PO DAILY [facility] Ondansetron HCl (Zofran) 4 mg IVP BIDPRN PRN PRN Reason: Nausea/Vomiting Sodium Chloride (Flush - Normal Saline) 10 ml IVF PRN PRN PRN Reason: Saline Flush
[2018-07-13] MEDS: Sodium Chloride 0.9% 1,000 ML IV SCH ×2 (00:22→11:47)
[2018-07-13] MEDS: Dexamethasone 4 mg/ml Vial SLOW IVP SCH ×4 (00:22→18:55)
[2018-07-13] MEDS: Famotidine/PF 20 mg/2ml Vial SLOW IVP SCH ×2 (09:26→21:17)
[2018-07-13] MEDS: Allopurinol 100 MG TAB PO SCH (09:27)
[2018-07-13] MEDS: Nebivolol HCl 5 MG TAB PO SCH (09:27)
[2018-07-13] MEDS: Hydrochlorothiazide 25 MG TAB PO SCH (09:27)
[2018-07-13] MEDS: Amlodipine 10 MG TAB PO SCH (09:29)
[2018-07-13] MEDS: Atorvastatin Calcium 40 MG TAB PO SCH (09:30)
--- NOTE | 2018-07-13 10:12 | PRG ---
DATE OF SERVICE: 07/13/2018 Mr. Fernández is seen in his hospital room this morning. There is a sitter in the room. He has no complaints, but he also has some difficulty with expressive language function. His temperatures overnight do not show any fevers. His blood pressures have been in the 120s to 140s. Mr. Fernández is awake. He responds to statements and questions with a simple one-word answer when I ask for more in-depth communication, it is difficult for him to get all of his thoughts translated into comprehensible sentences. There is some right-sided hemiparesis. Left side is working well and quite purposeful. Imaging has revealed enhancing lesions in the left hemisphere, one of which is hemorrhagic. Dr. Rivera is planning a surgical intervention on Mr. Fernández for Sunday. I do not see any family here to discuss our findings. We will continue to monitor him over the weekend and keep him n.p.o. after midnight on Sunday and order antibiotics for his surgery. Job ID: [id number] MTDD
--- NOTE | 2018-07-13 12:02 | PRG ---
DATE OF SERVICE: 07/13/2018 SUBJECTIVE: This morning, he is awake, alert, and responsive. His MRI showed multifocal intracranial lesions, occupying the left cerebral hemisphere, with associated hemorrhage, so it is a metastatic disease. He is to undergo surgical intervention on Sunday. He denies any coughing or difficulty breathing. By a pulmonary guidry, he is stable. OBJECTIVE: VITAL SIGNS: Saturations are 98% on room air, pulse 58, temperature 98, blood pressure 120/63, respiratory rate 18. CHEST: No wheezing or crackles. CARDIAC: Normal S1 and S2. No gallops. ABDOMEN: No masses. IMPRESSION: Intracerebral mass, left hemisphere, hemorrhagic. Surgical intervention is planned for Sunday. Otherwise, continue supportive care, Decadron, and we will follow. Job ID: [id number]
--- NOTE | 2018-07-13 14:17 | PDOC.PN ---
- Subjective Encounter Start Date: 07/13/18 Encounter Start Time: 13:00 Pt seen for followup re: brain masses. No complaints. - Objective MAR Reviewed: Yes Vital Signs & Weight: Vital Signs (12 hours) Temp Pulse Pulse Pulse Resp BP BP 07/13/18 11:47 97.8 F 60 16 07/13/18 11:00 64 64 142/71 H 07/13/18 09:30 07/13/18 09:29 58 L 126/63 07/13/18 09:25 98.5 F 62 16 07/13/18 04:00 98.0 F 53 L 16 BP BP Pulse Ox 07/13/18 11:47 140/69 98 07/13/18 11:00 142/71 H 07/13/18 09:30 94 L 07/13/18 09:29 07/13/18 09:25 126/63 94 L 07/13/18 04:00 138/72 96 Weight Weight 201 lb 11.2 oz Most Recent Monitor Data Heart Rate from ECG 64 NIBP 128/72 NIBP BP-Mean 90 Respiration from ECG 9 SpO2 93 I&O: 07/12/18 07/13/18 07/14/18 06:59 06:59 06:59 Intake Total 2094 1330 600 Output Total 2090 940 Balance 4 390 600 Result Diagrams: 07/11/18 04:26 07/11/18 04:26 Additional Labs: Labs reviewed by me Phys Exam - Physical Examination Constitutional: NAD HEENT: moist MMs Neck: supple Respiratory: clear to auscultation bilateral Cardiovascular: RRR Gastrointestinal: soft Musculoskeletal: no edema Neurological: moves all 4 limbs Psychiatric: normal affect Dx/Plan (1) Neoplasm of brain causing mass 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 structures Code(s): D49.6 - NEOPLASM OF UNSPECIFIED BEHAVIOR OF BRAIN Status: Acute Comment: Pt to have stereotactic biopsy day after tomorrow. (2) Hypertension Code(s): I10 - ESSENTIAL (PRIMARY) HYPERTENSION Status: Chronic Comment: controlled (3) Hyperlipidemia Code(s): E78.5 - HYPERLIPIDEMIA, UNSPECIFIED Status: Chronic Comment: on atorvastatin - Plan * . Review of Systems - Review of Systems Cardiovascular: negative: chest pain, palpitations, orthopnea, paroxysmal nocturnal dyspnea, edema, light headedness Gastrointestinal: negative: Nausea, Vomiting, Abdominal Pain, Diarrhea, Constipation, Melena, Hematochezia Neurological: negative: Weakness, Numbness, Incoordination, Change in Speech, Confusion, Seizures - Medications/Allergies Allergies/Adverse Reactions: Allergies Allergy/AdvReac Type Severity Reaction Status Date / Time No Known Drug Allergies Allergy Unverified 07/10/18 23:07 Medications: Current Medications Allopurinol (Zyloprim) 200 mg PO DAILY [facility] Last Admin: 07/13/18 09:27 Dose: 200 mg Amlodipine Besylate (Norvasc) 10 mg PO DAILY [facility] Last Admin: 07/13/18 09:29 Dose: 10 mg Atorvastatin Calcium (Lipitor) 40 mg PO DAILY [facility] Last Admin: 07/13/18 09:30 Dose: 40 mg Dexamethasone (Decadron) 4 mg SLOW IVP Q6HR [facility] Last Admin: 07/13/18 12:47 Dose: 4 mg Famotidine (Pepcid) 20 mg SLOW IVP Q12HR [facility] Last Admin: 07/13/18 09:26 Dose: 20 mg Hydralazine HCl (Apresoline) 10 mg SLOW IVP Q6H PRN PRN Reason: SBP Greater Than 170 Hydrochlorothiazide (Hydrochlorothiazide) 12.5 mg PO DAILY [facility] Last Admin: 07/13/18 09:27 Dose: 12.5 mg Sodium Chloride (Normal Saline 0.9%) 1,000 mls @ 80 mls/hr IV .[id number] [facility] Last Admin: 07/13/18 11:47 Dose: Not Given Nicardipine HCl 25 mg/ Sodium (Chloride) 250 mls @ 0 mls/hr IVPB INF PRN; Protocol PRN Reason: SBP >140 Cefazolin Sodium/Dextrose 2 gm (/ Device) 50 mls @ 100 mls/hr IVPB ONCALL-OR [facility] Stop: 07/15/18 17:00 Cefazolin Sodium/Dextrose 2 gm (/ Device) 50 mls @ 100 mls/hr IVPB Q8HR [facility] Stop: 07/15/18 22:29 Nebivolol (Bystolic) 10 mg PO DAILY [facility] Last Admin: 07/13/18 09:27 Dose: 10 mg Ondansetron HCl (Zofran) 4 mg IVP BIDPRN PRN PRN Reason: Nausea/Vomiting Sodium Chloride (Flush - Normal Saline) 10 ml IVF PRN PRN PRN Reason: Saline Flush
[2018-07-14] MEDS: Dexamethasone 4 mg/ml Vial SLOW IVP SCH ×4 (00:06→17:52)
[2018-07-14] MEDS: Sodium Chloride 0.9% 1,000 ML IV SCH ×2 (00:33→17:35)
[2018-07-14] MEDS: Amlodipine 10 MG TAB PO SCH (09:41)
[2018-07-14] MEDS: Atorvastatin Calcium 40 MG TAB PO SCH (09:42)
[2018-07-14] MEDS: Hydrochlorothiazide 25 MG TAB PO SCH (09:42)
[2018-07-14] MEDS: Nebivolol HCl 5 MG TAB PO SCH (09:44)
[2018-07-14] MEDS: Allopurinol 100 MG TAB PO SCH (09:45)
[2018-07-14] MEDS: Famotidine/PF 20 mg/2ml Vial SLOW IVP SCH ×2 (09:46→20:30)
--- NOTE | 2018-07-14 10:35 | PRG ---
DATE OF SERVICE: 07/14/2018 I saw Mr. Fernández at the hospital room this morning. He continues to have dysphasia, right face weakness, and some right hand weakness. He has a bit of pronator drift. Mr. Fernández is scheduled for surgical intervention tomorrow. We will make sure he has antibiotics ordered, n.p.o. after midnight. The consent will be on the chart. We will let Anesthesia know of the addition to the schedule. Job ID: [id number] MTDD
--- NOTE | 2018-07-14 11:43 | PRG ---
DATE OF SERVICE: 07/14/2018 SUBJECTIVE: This morning, he is awake and responsive. OBJECTIVE: VITAL SIGNS: His pulse is 49, temperature 97, blood pressure 130/62, respiratory rate 18, saturations are GENERAL: Slightly encephalopathic. CHEST: Decreased breath sounds. No wheezing. CARDIAC: Normal S1 and S2. No gallops. ABDOMEN: No masses. IMPRESSION AND PLAN: Multiple intracerebral masses and hemorrhage. Surgical intervention planned for tomorrow hopefully to get a tissue diagnosis. Pulmonary will follow. He may go to the ICU. Supportive care. Job ID: [id number]
--- NOTE | 2018-07-14 14:29 | PDOC.PN ---
- Subjective Encounter Start Date: 07/14/18 Encounter Start Time: 11:00 Subjective: pt up in bed no complains - Objective Vital Signs & Weight: Vital Signs (12 hours) Temp Pulse Resp BP BP BP Pulse Ox 07/14/18 11:31 97.6 F 48 L 18 136/71 94 L 07/14/18 09:45 98 07/14/18 09:41 49 L 130/62 07/14/18 07:46 97.6 F 49 L 18 130/62 98 07/14/18 04:00 97.6 F 47 L 16 141/67 H 97 Weight Weight 201 lb 8 oz Most Recent Monitor Data Heart Rate from ECG 64 NIBP 128/72 NIBP BP-Mean 90 Respiration from ECG 9 SpO2 93 I&O: 07/13/18 07/14/18 07/15/18 06:59 06:59 06:59 Intake Total 1330 1400 Output Total 940 Balance 390 1400 Result Diagrams: 07/11/18 04:26 07/11/18 04:26 Phys Exam - Physical Examination Neck: no nodes, no JVD, supple, full ROM Respiratory: no wheezing, no rales, no rhonchi, wheezing present, clear to auscultation bilateral Cardiovascular: RRR, no significant murmur, no rub, gallop, irregular Gastrointestinal: soft, non-tender, no distention, positive bowel sounds has right facial droop Dx/Plan (1) Neoplasm of brain causing mass 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 structures Code(s): D49.6 - NEOPLASM OF UNSPECIFIED BEHAVIOR OF BRAIN Status: Acute Comment: Pt to have stereotactic biopsy day after tomorrow. (2) Alcohol abuse Code(s): F10.10 - ALCOHOL ABUSE, UNCOMPLICATED Status: Acute (3) Brain metastases Code(s): C79.31 - SECONDARY MALIGNANT NEOPLASM OF BRAIN Status: Acute (4) Tobacco abuse Code(s): Z72.0 - TOBACCO USE Status: Acute (5) Hyperlipidemia Code(s): E78.5 - HYPERLIPIDEMIA, UNSPECIFIED Status: Chronic Comment: on atorvastatin (6) Hypertension Code(s): I10 - ESSENTIAL (PRIMARY) HYPERTENSION Status: Chronic Comment: controlled - Plan pt going for a brain biopsy -: pt has a hx of melanoma * . Review of Systems - Review of Systems Respiratory: negative: Cough, Dry, Shortness of Breath, Hemoptysis, SOB with Excertion, Pleuritic Pain, Sputum, Wheezing Cardiovascular: negative: chest pain, palpitations, orthopnea, paroxysmal nocturnal dyspnea, edema, light headedness, other Gastrointestinal: negative: Nausea, Vomiting, Abdominal Pain, Diarrhea, Constipation, Melena, Hematochezia, Other - Medications/Allergies Allergies/Adverse Reactions: Allergies Allergy/AdvReac Type Severity Reaction Status Date / Time No Known Drug Allergies Allergy Unverified 07/10/18 23:07 Medications: Current Medications Allopurinol (Zyloprim) 200 mg PO DAILY [facility] Last Admin: 07/14/18 09:45 Dose: 200 mg Amlodipine Besylate (Norvasc) 10 mg PO DAILY [facility] Last Admin: 07/14/18 09:41 Dose: 10 mg Atorvastatin Calcium (Lipitor) 40 mg PO DAILY [facility] Last Admin: 07/14/18 09:42 Dose: 40 mg Dexamethasone (Decadron) 4 mg SLOW IVP Q6HR [facility] Last Admin: 07/14/18 12:05 Dose: 4 mg Famotidine (Pepcid) 20 mg SLOW IVP Q12HR [facility] Last Admin: 07/14/18 09:46 Dose: 20 mg Hydralazine HCl (Apresoline) 10 mg SLOW IVP Q6H PRN PRN Reason: SBP Greater Than 170 Hydrochlorothiazide (Hydrochlorothiazide) 12.5 mg PO DAILY [facility] Last Admin: 07/14/18 09:42 Dose: 12.5 mg Sodium Chloride (Normal Saline 0.9%) 1,000 mls @ 80 mls/hr IV .[id number] [facility] Last Admin: 07/14/18 00:33 Dose: Not Given Nicardipine HCl 25 mg/ Sodium (Chloride) 250 mls @ 0 mls/hr IVPB INF PRN; Protocol PRN Reason: SBP >140 Cefazolin Sodium/Dextrose 2 gm (/ Device) 50 mls @ 100 mls/hr IVPB ONCALL-OR [facility] Stop: 07/15/18 17:00 Cefazolin Sodium/Dextrose 2 gm (/ Device) 50 mls @ 100 mls/hr IVPB Q8HR [facility] Stop: 07/15/18 22:29 Nebivolol (Bystolic) 10 mg PO DAILY [facility] Last Admin: 07/14/18 09:44 Dose: 10 mg Ondansetron HCl (Zofran) 4 mg IVP BIDPRN PRN PRN Reason: Nausea/Vomiting Sodium Chloride (Flush - Normal Saline) 10 ml IVF PRN PRN PRN Reason: Saline Flush
[2018-07-15] MEDS: Dexamethasone 4 mg/ml Vial SLOW IVP SCH ×5 (01:06→23:50)
[2018-07-15] MEDS: Sodium Chloride 0.9% 1,000 ML IV SCH ×2 (03:42→19:51)
[2018-07-15] MEDS ORDERED: CEFAZOLIN 2 GM in Premix Bag 1 BAG IVPB SCH ×2 (05:00→09:00)
[2018-07-15] MEDS: Famotidine/PF 20 mg/2ml Vial SLOW IVP SCH ×2 (08:43→20:32)
[2018-07-15] MEDS ORDERED: Bacitracin Zinc Ointment 30 gm TUBE ONE (11:33)
[2018-07-15] MEDS: Allopurinol 100 MG TAB PO SCH (11:41)
[2018-07-15] MEDS: Amlodipine 10 MG TAB PO SCH (11:41)
[2018-07-15] MEDS: Nebivolol HCl 5 MG TAB PO SCH (11:41)
[2018-07-15] MEDS: Atorvastatin Calcium 40 MG TAB PO SCH (11:41)
[2018-07-15] MEDS: Hydrochlorothiazide 25 MG TAB PO SCH (11:41)
[2018-07-15] MEDS ORDERED: Fentanyl 100 MCG/2 ML VIAL ONE ×3 (11:55→17:30)
--- NOTE | 2018-07-15 13:48 | PRG ---
DATE OF SERVICE: 07/15/2018 I visited with Mr. Fernández and his family. I discussed with him my recommendation for stereotactic brain biopsy in the left temporal region for the purpose of establishing a diagnosis. I explained to them that the lesions are not surgically resectable and likely represent metastatic malignancy, but that it would guide our treatment to have a definitive diagnosis. I also expressed that the stereotactic biopsy was somewhat difficult given the locations of the lesions with somewhat elevated risk. We specifically discussed the indications, risks, benefits, and alternatives of the left stereotactic brain biopsy. They expressed their understanding. All questions were answered and they wished to proceed. Job ID: [id number]
[2018-07-15] MEDS ORDERED: Ondansetron HCl/PF 4 MG/2 ML Vial IVP PRN (14:02)
[2018-07-15] MEDS ORDERED: Promethazine HCl 25 MG/ML VIAL SLOW IVP PRN (14:02)
[2018-07-15] MEDS ORDERED: Promethazine HCl 25 MG/ML VIAL IM PRN (14:02)
[2018-07-15] MEDS ORDERED: Ondansetron PF 4 MG/2 ML Vial ONE (16:05)
[2018-07-15] MEDS ORDERED: PROPOFOL 200 MG/20 ML VIAL ONE (16:05)
[2018-07-15] MEDS ORDERED: Dexamethasone 20 MG/5 ML VIAL ONE (16:05)
[2018-07-15] MEDS ORDERED: Glycopyrrolate 0.2 MG/ML 5 ML SYRINGE ONE (16:05)
[2018-07-15] MEDS ORDERED: ePHEDrine 50 MG/ML VIAL ONE (16:05)
[2018-07-15] MEDS ORDERED: Rocuronium Bromide 10 MG/ML (10ML VIAL) ONE (16:05)
[2018-07-15] MEDS ORDERED: Lidocaine 1% PF 5 ML VIAL ONE (16:05)
[2018-07-15] MEDS: CEFAZOLIN 2 GM in Premix Bag 1 BAG IVPB SCH ×2 (19:50→22:39)
[2018-07-16] MEDS: Sodium Chloride 0.9% 1,000 ML IV SCH ×2 (05:50→18:09)
[2018-07-16] MEDS: Dexamethasone 4 mg/ml Vial SLOW IVP SCH ×4 (05:52→23:22)
[2018-07-16] MEDS ORDERED: CEFAZOLIN 2 GM in Premix Bag 1 BAG IVPB SCH (06:00)
--- NOTE | 2018-07-16 09:17 | PRG ---
DATE OF SERVICE: 07/16/2018 SUBJECTIVE: The patient is a 68-year-old male, who underwent left-sided stereotactic brain biopsy yesterday for left-sided brain mass suspicious for metastatic disease. Following the surgery, he was transitioned back to the ICU, where he had been monitored closely overnight. His neurologic exam remained stable. He has had no issues with blood pressure control overnight. He is occasionally impulsive and requires some redirection to stay in the bed. He did require soft restraints overnight. OBJECTIVE: NEUROLOGIC: On my exam this morning, the patient is awake, alert, oriented x2. He has free active range of motion of all extremities. He is slightly weak on the right consistent with his prior exams. Pupils are equal and reactive. His dressing has a small amount of bloody drainage on the pad. I removed it and there is no active drainage. ASSESSMENT AND PLAN: We will plan to transition the patient out of the ICU to the Med/Surg floor. He will likely need a sitter considering his underlying impulsivity. We will continue to mobilize the patient and work on advancing his diet. A rehab screen has been placed and I anticipate need for inpatient rehabilitation at discharge within the next day or two. Job ID: [id number]
[2018-07-16] MEDS: Famotidine/PF 20 mg/2ml Vial SLOW IVP SCH ×2 (09:48→21:59)
[2018-07-16] MEDS: Hydrochlorothiazide 25 MG TAB PO SCH (09:48)
[2018-07-16] MEDS: Allopurinol 100 MG TAB PO SCH (09:51)
[2018-07-16] MEDS: Nebivolol HCl 5 MG TAB PO SCH (09:52)
[2018-07-16] MEDS: Atorvastatin Calcium 40 MG TAB PO SCH (09:53)
[2018-07-16] MEDS: Amlodipine 10 MG TAB PO SCH (09:55)
--- NOTE | 2018-07-16 10:10 | PRG ---
DATE OF SERVICE: 07/16/2018 SERVICE: Pulmonary Medicine. INTERVAL HISTORY: The patient is doing fine after his biopsy. Neurologically, he is roughly stable. There has been no interval change to his condition otherwise. He indicates he is breathing comfortably. He did not have any chest discomfort or overnight events. NIH scales have been stable. PHYSICAL EXAMINATION: VITAL SIGNS: Afebrile, pulse 54, blood pressure 154/78, respirations 23, and saturation 93% on room air. GENERAL: The patient is awake and alert, in no apparent distress. LUNGS: Decent air entry. There is no prolonged expiratory phase. I do not appreciate any crackles or rhonchi. HEART: Normal rate and regular. ABDOMEN: Soft, nontender, and nondistended. Bowel sounds are positive. MUSCULOSKELETAL: No cyanosis or clubbing. No pitting in the bilateral lower extremities. NEUROLOGIC: Grossly nonfocal. ASSESSMENT: 1. Intracranial mass, status post biopsy, postop day 1. 2. Intraparenchymal hemorrhage, stable. DISCUSSION AND PLAN: The patient is once again stable for transition out of the ICU to the stroke unit if Neurosurgery is okay with that transition. We are awaiting pathology to help guide therapy. Pulmonary will continue to follow in this location, but when he lands on the floor, he have no additional need for Pulmonary or Critical Care opinion, and I will sign off. Job ID: [id number]
--- NOTE | 2018-07-16 13:33 | PDOC.PN ---
- Subjective Encounter Start Date: 07/16/18 Encounter Start Time: 10:15 Subjective: pt up in bed no complains - Objective Resuscitation Status - Order Detail: 07/16/18 13:22 Resuscitation Status Routine Resuscitation Status: FULL: Full Resuscitation Vital Signs & Weight: Vital Signs (12 hours) Temp Pulse Pulse BP 07/16/18 10:44 48 L 146/80 H 07/16/18 09:55 55 L 07/16/18 04:00 97.8 F Weight Weight 201 lb 15.095 oz Most Recent Monitor Data Heart Rate from ECG 47 NIBP 138/70 NIBP BP-Mean 92 Respiration from ECG 13 SpO2 93 I&O: 07/15/18 07/16/18 07/17/18 06:59 06:59 06:59 Intake Total 1185 1009 Output Total 750 Balance 1185 259 Result Diagrams: 07/11/18 04:26 07/11/18 04:26 Phys Exam - Physical Examination Neck: no nodes, no JVD, supple, full ROM Respiratory: no wheezing, no rales, no rhonchi, wheezing present, clear to auscultation bilateral Cardiovascular: RRR, no significant murmur, no rub, gallop, irregular Gastrointestinal: soft, non-tender, no distention, positive bowel sounds Musculoskeletal: no edema, pulses present, edema present right side facial droop Dx/Plan (1) Neoplasm of brain causing mass 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 structures Code(s): D49.6 - NEOPLASM OF UNSPECIFIED BEHAVIOR OF BRAIN Status: Acute Comment: Pt to have stereotactic biopsy day after tomorrow. (2) Alcohol abuse Code(s): F10.10 - ALCOHOL ABUSE, UNCOMPLICATED Status: Acute (3) Brain metastases Code(s): C79.31 - SECONDARY MALIGNANT NEOPLASM OF BRAIN Status: Acute (4) Tobacco abuse Code(s): Z72.0 - TOBACCO USE Status: Acute (5) Hyperlipidemia Code(s): E78.5 - HYPERLIPIDEMIA, UNSPECIFIED Status: Chronic Comment: on atorvastatin (6) Hypertension Code(s): I10 - ESSENTIAL (PRIMARY) HYPERTENSION Status: Chronic Comment: controlled - Plan awaiting path report, medically stable -: pt will need rehab, family updated * . Review of Systems - Review of Systems Respiratory: negative: Cough, Dry, Shortness of Breath, Hemoptysis, SOB with Excertion, Pleuritic Pain, Sputum, Wheezing Cardiovascular: negative: chest pain, palpitations, orthopnea, paroxysmal nocturnal dyspnea, edema, light headedness, other Gastrointestinal: negative: Nausea, Vomiting, Abdominal Pain, Diarrhea, Constipation, Melena, Hematochezia, Other - Medications/Allergies Allergies/Adverse Reactions: Allergies Allergy/AdvReac Type Severity Reaction Status Date / Time benazepril Allergy Verified 07/15/18 11:05 Medications: Current Medications Allopurinol (Zyloprim) 200 mg PO DAILY [facility] Last Admin: 07/16/18 09:51 Dose: 200 mg Amlodipine Besylate (Norvasc) 10 mg PO DAILY [facility] Last Admin: 07/16/18 09:55 Dose: Not Given Atorvastatin Calcium (Lipitor) 40 mg PO DAILY [facility] Last Admin: 07/16/18 09:53 Dose: 40 mg Dexamethasone (Decadron) 4 mg SLOW IVP Q6HR [facility] Last Admin: 07/16/18 12:13 Dose: 4 mg Famotidine (Pepcid) 20 mg SLOW IVP Q12HR [facility] Last Admin: 07/16/18 09:48 Dose: 20 mg Hydralazine HCl (Apresoline) 10 mg SLOW IVP Q6H PRN PRN Reason: SBP Greater Than 170 Hydrochlorothiazide (Hydrochlorothiazide) 12.5 mg PO DAILY [facility] Last Admin: 07/16/18 09:48 Dose: 12.5 mg Sodium Chloride (Normal Saline 0.9%) 1,000 mls @ 80 mls/hr IV .[id number] [facility] Last Admin: 07/16/18 05:50 Dose: 1,000 mls Nicardipine HCl 25 mg/ Sodium (Chloride) 250 mls @ 0 mls/hr IVPB INF PRN; Protocol PRN Reason: SBP >140 Nebivolol (Bystolic) 10 mg PO DAILY [facility] Last Admin: 07/16/18 09:52 Dose: 10 mg Ondansetron HCl (Zofran) 4 mg IVP BIDPRN PRN PRN Reason: Nausea/Vomiting Sodium Chloride (Flush - Normal Saline) 10 ml IVF PRN PRN PRN Reason: Saline Flush Last Admin: 07/15/18 08:43 Dose: 10 ml
[2018-07-17] MEDS: Sodium Chloride 0.9% 1,000 ML IV SCH ×2 (02:14→16:54)
[2018-07-17] MEDS: Dexamethasone 4 mg/ml Vial SLOW IVP SCH ×4 (06:06→17:00)
--- NOTE | 2018-07-17 08:58 | PRG ---
DATE OF SERVICE: 07/17/2018 The patient is postoperative day #2, status post left-sided stereotactic brain biopsy of brain mass. Following surgery, he was transitioned to the CCU, where he was monitored closely without any acute events. He was transitioned to the floor yesterday. He has been tolerating a regular diet and voiding appropriately. He has been up, ambulating with assistance. No overnight events or complaints this morning. The patient is awake, alert, and oriented to person, place. He has free active range of motion of all extremities, only slight right-sided weakness is appreciated on my exam today. His speech appears more clear today. His dressing is dry. The patient is doing well since his brain biopsy. We are still pending results. I feel that he is ready for inpatient rehab at any point in time in the future. Job ID: [id number]
[2018-07-17] MEDS: Hydrochlorothiazide 25 MG TAB PO SCH (09:52)
[2018-07-17] MEDS: Allopurinol 100 MG TAB PO SCH (09:52)
[2018-07-17] MEDS: Nebivolol HCl 5 MG TAB PO SCH (09:52)
[2018-07-17] MEDS: Atorvastatin Calcium 40 MG TAB PO SCH (09:52)
[2018-07-17] MEDS: Amlodipine 10 MG TAB PO SCH (09:53)
[2018-07-17] MEDS: Famotidine/PF 20 mg/2ml Vial SLOW IVP SCH ×2 (09:53→20:33)
--- NOTE | 2018-07-17 12:36 | CON ---
DATE OF CONSULTATION: REASON FOR CONSULT: Brain lesion. HISTORY OF PRESENT ILLNESS: Mr. Fernández is a 68-year-old gentleman, who was brought to the emergency room for right-sided weakness and slurred speech. He had a brain CT performed, which showed a mass in the left cerebral hemisphere centered in the left basal ganglia. It had surrounding vasogenic edema and internal hemorrhage. It extended into the left medial temporal lobe, produced mass effect with midline shift. Neurosurgery was consulted. Brain MRI was performed, multifocal intracranial lesions were noted, one was in the left middle cranial fossa measuring 2.9 cm. There was a cortical based medial left temporal lobe lesion measuring 4.3 cm. There was an intra-axial hemorrhagic lesion measuring 3.4 cm in the left basal ganglia, which was causing mass effect with rightward subfalcine herniation and mild intraventricular hemorrhagic extension. The patient underwent a stereotactic biopsy. Pathology confirmed a poorly differentiated malignant neoplasm. Immunohistochemical stains are pending. The patient continues to have neurological deficits including expressive aphasia and right-sided weakness. We were asked to see the patient regarding treatment options. The patient was unable to provide history secondary to deficits. There are no family at bedside. History was obtained from review of medical record. PAST MEDICAL HISTORY: 1. Hypertension. 2. Hyperlipidemia. PAST SURGICAL HISTORY: Unknown. ALLERGIES: NO KNOWN DRUG ALLERGIES. HOME MEDICATIONS: 1. Allopurinol daily. 2. Amlodipine daily. 3. Lipitor daily. 4. Celecoxib daily. 5. Hydrochlorothiazide daily. 6. Bystolic daily. FAMILY HISTORY: Unable to obtain. SOCIAL HISTORY: The patient is apparently with children, but does not live with spouse, states he lives with his mother. Current alcohol and tobacco use. REVIEW OF SYSTEMS: Unable to obtain. PHYSICAL EXAMINATION: VITAL SIGNS: Temperature is 97, pulse is 54, respiratory rate is 20, BP is 162/ 95, and he is 92% on room air. GENERAL: Well-developed, well-nourished male, in no acute distress. HEENT: Normocephalic and atraumatic. He has a dressing to his left scalp. NECK: Supple. CV: Regular rate and rhythm. He has bradycardia. LUNGS: Clear anterior. ABDOMEN: Soft and nontender. Bowel sounds are positive. EXTREMITIES: No clubbing, cyanosis, or edema. SKIN: No rash. HEMATOLOGIC: No petechiae or purpura. NEUROLOGIC: The patient has expressive aphasia with right-sided weakness. PERTINENT LABS AND X-RAYS: Current WBCs are 8.9, hemoglobin 16, hematocrit 46.3 , platelet counts are 143,000, 86% neutrophils, and 11% lymphocytes. PT is 12.9, INR is 1.0, and PTT is 26.1. Sodium is 137, potassium 4.1, chloride 101, CO2 is 24 , BUN is 13, creatinine 0.94, calcium 9.8, bilirubin 1, AST is 48, ALT is 56, alkaline phosphatase is 85, and creatine kinase is 123. Troponin is negative. Serum total protein 7.1, albumin 4.2, and globulin 3. Urine is negative. Radiology per HPI. 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 DISCUSSION: The patient has pending immunohistochemical stains, which will hopefully give us a primary source of lesions. There is no evidence of primary mass on CT scan. He will likely have a PET in the outpatient setting. Primary treatment is radiation. We will ask Dr. Cornejo to see the patient. Thank you for the consult. We will follow along. Job ID: [id number] [facility]
[2018-07-17] MEDS: hydrALAZINE 20 MG/ML VIAL SLOW IVP PRN (16:54)
[2018-07-17] MEDS ORDERED: Lorazepam 2 MG/ML VIAL SLOW IVP SCH (18:30)
--- NOTE | 2018-07-17 20:06 | PDOC.PN ---
- Subjective Encounter Start Date: 07/17/18 Encounter Start Time: 10:15 Subjective: up in bed no complains - Objective Vital Signs & Weight: Vital Signs (12 hours) Temp Pulse Pulse Pulse Resp BP BP 07/17/18 18:35 57 L 07/17/18 18:13 65 07/17/18 17:18 55 L 07/17/18 16:55 07/17/18 16:35 97.6 F 62 14 07/17/18 15:54 97.5 F L 47 L 14 07/17/18 11:50 97.5 F L 53 L 18 07/17/18 11:10 162/95 H 07/17/18 09:53 54 L 162/95 H 07/17/18 09:03 50 L 50 L 138/75 BP BP BP Pulse Ox 07/17/18 18:35 177/82 H 07/17/18 18:13 178/91 H 07/17/18 17:18 190/82 H 07/17/18 16:55 97 07/17/18 16:35 183/87 H 97 07/17/18 15:54 174/82 H 92 L 07/17/18 11:50 150/80 H 91 L 07/17/18 11:10 07/17/18 09:53 07/17/18 09:03 147/85 H Weight Weight 194 lb 9.6 oz Most Recent Monitor Data Heart Rate from ECG 40 NIBP 124/63 NIBP BP-Mean 83 Respiration from ECG 13 SpO2 95 I&O: 07/16/18 07/17/18 07/18/18 06:59 06:59 06:59 Intake Total 1009 1467 630 Output Total 750 1325 2 Balance 259 142 628 Result Diagrams: 07/11/18 04:26 07/11/18 04:26 Phys Exam - Physical Examination Neck: no nodes, no JVD, supple, full ROM Respiratory: no wheezing, no rales, no rhonchi, wheezing present, clear to auscultation bilateral Cardiovascular: RRR, no significant murmur, no rub, gallop, irregular Gastrointestinal: soft, non-tender, no distention, positive bowel sounds Dx/Plan (1) Neoplasm of brain causing mass 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 structures Code(s): D49.6 - NEOPLASM OF UNSPECIFIED BEHAVIOR OF BRAIN Status: Acute Comment: Pt to have stereotactic biopsy day after tomorrow. (2) Alcohol abuse Code(s): F10.10 - ALCOHOL ABUSE, UNCOMPLICATED Status: Acute (3) Brain metastases Code(s): C79.31 - SECONDARY MALIGNANT NEOPLASM OF BRAIN Status: Acute (4) Tobacco abuse Code(s): Z72.0 - TOBACCO USE Status: Acute (5) Hyperlipidemia Code(s): E78.5 - HYPERLIPIDEMIA, UNSPECIFIED Status: Chronic Comment: on atorvastatin (6) Hypertension Code(s): I10 - ESSENTIAL (PRIMARY) HYPERTENSION Status: Chronic Comment: controlled - Plan updated pt's family about biopsy results -: awaiting placement * . Review of Systems - Review of Systems Respiratory: negative: Cough, Dry, Shortness of Breath, Hemoptysis, SOB with Excertion, Pleuritic Pain, Sputum, Wheezing Cardiovascular: negative: chest pain, palpitations, orthopnea, paroxysmal nocturnal dyspnea, edema, light headedness, other - Medications/Allergies Allergies/Adverse Reactions: Allergies Allergy/AdvReac Type Severity Reaction Status Date / Time benazepril Allergy Verified 07/15/18 11:05 Medications: Current Medications Allopurinol (Zyloprim) 200 mg PO DAILY [facility] Last Admin: 07/17/18 09:52 Dose: 200 mg Amlodipine Besylate (Norvasc) 10 mg PO DAILY [facility] Last Admin: 07/17/18 09:53 Dose: 10 mg Atorvastatin Calcium (Lipitor) 40 mg PO DAILY [facility] Last Admin: 07/17/18 09:52 Dose: 40 mg Dexamethasone (Decadron) 4 mg SLOW IVP Q6HR [facility] Last Admin: 07/17/18 17:00 Dose: 4 mg Diazepam (Valium) 10 mg PO [facility] Stop: 07/17/18 22:30 Diazepam (Valium) 10 mg PO Q4H PRN PRN Reason: ASE >10 Diazepam (Valium) 5 mg PO Q4H PRN PRN Reason: ASE >10 Famotidine (Pepcid) 20 mg SLOW IVP Q12HR [facility] Last Admin: 07/17/18 09:53 Dose: 20 mg Hydralazine HCl (Apresoline) 10 mg SLOW IVP Q6H PRN PRN Reason: SBP Greater Than 170 Last Admin: 07/17/18 16:54 Dose: 10 mg Hydrochlorothiazide (Hydrochlorothiazide) 12.5 mg PO DAILY [facility] Last Admin: 07/17/18 09:52 Dose: 12.5 mg Sodium Chloride (Normal Saline 0.9%) 1,000 mls @ 80 mls/hr IV .[id number] [facility] Last Admin: 07/17/18 16:54 Dose: 1,000 mls Nicardipine HCl 25 mg/ Sodium (Chloride) 250 mls @ 0 mls/hr IVPB INF PRN; Protocol PRN Reason: SBP >140 Lorazepam (Ativan) 0.5 mg SLOW IVP NOW [facility] Stop: 07/17/18 21:00 Last Admin: 07/17/18 18:32 Dose: 0.5 mg Nebivolol (Bystolic) 10 mg PO DAILY [facility] Last Admin: 07/17/18 09:52 Dose: 10 mg Ondansetron HCl (Zofran) 4 mg IVP BIDPRN PRN PRN Reason: Nausea/Vomiting Sodium Chloride (Flush - Normal Saline) 10 ml IVF PRN PRN PRN Reason: Saline Flush Last Admin: 07/15/18 08:43 Dose: 10 ml
[2018-07-18] MEDS: Dexamethasone 4 mg/ml Vial SLOW IVP SCH ×2 (00:08→05:52)
[2018-07-18] MEDS: hydrALAZINE 20 MG/ML VIAL SLOW IVP PRN (04:31)
[2018-07-18] MEDS: Sodium Chloride 0.9% 1,000 ML IV SCH (09:23)
[2018-07-18] MEDS: Amlodipine 10 MG TAB PO SCH (09:23)
[2018-07-18] MEDS: Hydrochlorothiazide 25 MG TAB PO SCH (09:24)
[2018-07-18] MEDS: Atorvastatin Calcium 40 MG TAB PO SCH (09:24)
[2018-07-18] MEDS: Allopurinol 100 MG TAB PO SCH (09:24)
[2018-07-18] MEDS: Famotidine/PF 20 mg/2ml Vial SLOW IVP SCH (09:25)
[2018-07-18] MEDS: Dexamethasone 1 MG TAB PO SCH ×3 (09:33→21:22)
[2018-07-18] MEDS: Nebivolol HCl 5 MG TAB PO SCH (09:34)
--- NOTE | 2018-07-18 11:33 | CON ---
DATE OF CONSULTATION: REASON FOR CONSULTATION: Mr. 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 HISTORY OF PRESENT ILLNESS: Mr. Fernández was apparently found down with a right-sided weakness and slurred speech. He was admitted to the intensive care unit for possible stroke. He underwent a CT scan of the head that suggested several possible masses in the brain. Some of these masses were hemorrhagic, one was in the left basal ganglia. This led to a CT scan of the chest, abdomen, and pelvis. 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 He also had a 2.6 cm aneurysm of the abdominal aorta. There were several transverse process fractures in the lumbar spine. There is a 9 mm pulmonary nodule in the right lower lobe of unknown significance. There is no evidence of adenopathy and no evidence of primary site. MRI of the brain was performed, which showed multiple enhancing hemorrhagic lesions in the brain, one was in the left temporal lobe measuring 2.9 cm. There also was a 3.4 cm lesion in the left basal ganglia. Additionally, there was a 4.3 cm lesion in the left deep central brain. There was surrounding vasogenic edema. There was mass effect. He was started on dexamethasone. On Sunday, he underwent a stereotactic-guided biopsy of the left temporal lobe tumor by Dr. Rivera. Pathology has been interpreted as a poorly differentiated malignant neoplasm. Immunostains are pending. He has been seen by Oncology. I was asked to see the patient to discuss his treatment options further. Presently, the patient does have an expressive aphasia. He is unable to give his history. He does cooperate and is able to answer questions with occasional words, but mostly with yes and no answers and shaking his head. There is no family available at the present time. He denies any significant headaches. PAST MEDICAL HISTORY: 1. Hypertension. 2. Hypercholesterolemia. 3. Status post knee surgery. MEDICATIONS: 1. Norvasc. 2. Lipitor. 3. Decadron. 4. Pepcid. 5. Hydrochlorothiazide. 6. Bystolic. 7. Nicardipine. 8. Zofran p.r.n. ALLERGIES: BENAZEPRIL WHICH CAUSES AN UNKNOWN REACTION. SOCIAL HISTORY: The patient does live in [place], [place] with his . He apparently was still working full-time. He apparently does smoke and drink some alcohol, the quantity of which is unknown to me. FAMILY HISTORY: Unable to be obtained. REVIEW OF SYSTEMS: Otherwise negative, but again this is difficult to obtain. PHYSICAL EXAMINATION: VITAL SIGNS: Height 6 feet 5 inches, weight 194 pounds. GENERAL: He is alert and seems to be oriented, but again has an expressive aphasia. Karnofsky performance status is 40%. He does not get out of bed. EYES: Pupils equal, round, react to light. Extraocular movements are intact. ENT: Oral cavity and oropharynx revealed no mass lesion or soft tissue lesion. There is no erythema. Palate elevates symmetrically. NECK: Supple without cervical or supraclavicular adenopathy. No thyromegaly. Larynx midline. LUNGS: Breathing nonlabored. Clear to auscultation and percussion. CARDIOVASCULAR/HEART: Regular rate and rhythm without murmur. No lower extremity edema. ABDOMEN : Bowel sounds present. Soft, nontender, nondistended without mass or hepatosplenomegaly. Liver percusses normal size. SKIN: Without rash or purpura. NEUROLOGIC: Cranial nerves 2 through 12 are grossly intact. Motor strength is good in all extremities, although maybe slightly weaker on the right side than the left side. Again, he mostly follows commands and does have an expressive aphasia. He is not able to get out of bed at this time. RADIOLOGIC DATA: CT scan of the chest, abdomen, and pelvis as well as CT scan of the head and MRI of the head were all personally reviewed. Again, he has 3 large lesions in the brain. One is in the deep central left brain, one is in the left basal ganglia, and one is in the left temporal lobe. There is surrounding vasogenic edema with mass effect. CT revealed no evidence of primary site or other additional lesions suggestive of disease. LABORATORY DATA: Pathology has been interpreted as a poorly differentiated malignant neoplasm with immunostains pending. ASSESSMENT: Mr. Fernández is a 68-year-old gentleman with what appears to be brain metastasis from a yet unknown primary. He has been neurologically quite debilitated by these lesions. The lesions are hemorrhagic. He does have an expressive aphasia, but does appear to understand the situation and be oriented. PLAN: I had a long discussion with Mr. Fernández regarding his diagnosis, prognosis, prognostic factors, and treatment options. His prognosis is quite poor with his decreased performance status. These lesions in the brain are not surgically resectable. His only option for treatment is that of whole-brain radiation therapy. I have made this recommendation to him. The logistics of radiation as well as the benefits and risk of treatment were discussed. Side effects would include but not be limited to skin reaction, fatigue, lower blood counts, hair loss, this may be permanent, headache, nausea, vomiting, and possible damage to his brain. He does wish to proceed with radiation therapy at this time. I have been very honest and upfront with him. I have explained to him that his situation may not improve substantially with radiation therapy, but it is our only treatment option. He still remains desirous of proceeding with treatment. I have discussed the case with Dr. Rivera. He recommended not to start treatment until he has been at least a week from his stereotactic biopsy, which would be next Sunday. We can make arrangements toward that effect. Consideration apparently has been given to inpatient rehab. I am not sure that any rehabilitation will help him at this point until he gets his malignancy in the brain treated. I think that rehab may be better suited for after his radiation therapy. Thank you for this interesting consultation. Job ID: [id number]
--- NOTE | 2018-07-18 11:34 | PRG ---
DATE OF SERVICE: 07/18/2018 The patient is postoperative day #3 status post left-sided stereotactic brain biopsy of left-sided intracranial mass. Following the surgery, he was initially transferred to the CCU and then to the floor here today. He did have slight elevation in his blood pressure yesterday afternoon, but this is improved following addition of clonidine by the sound team. He had no overnight events. Yesterday , I discussed with Case Management about plan for inpatient rehabilitation and we are currently awaiting on insurance authorization. He does require sitter at the bedside for some increased impulsivity. Additionally Dr. Cornejo has been consulted for consideration of xrt. On exam this morning, the patient is resting comfortably. He does awaken easily to voice. He is oriented x2. He was noted still to have some expressive aphasia and some right-sided hemiparesis. His dressing is dry and intact. I have discontinued his IV Decadron and have started p.o. Decadron taper. We will continue to advance his diet and mobilize appropriately. The patient is ready for inpatient rehabilitation whenever insurance authorization is cleared. Job ID: [id number] [facility]
[2018-07-18] MEDS: Famotidine 20 MG TAB PO SCH (21:22)
[2018-07-18] MEDS: cloNIDine 0.1 MG TAB PO PRN (21:22)
[2018-07-19] MEDS: Diazepam 5 MG TAB PO PRN (09:00)
[2018-07-19] MEDS: Dexamethasone 1 MG TAB PO SCH (09:02)
[2018-07-19] MEDS: Amlodipine 10 MG TAB PO SCH (09:03)
[2018-07-19] MEDS: Hydrochlorothiazide 25 MG TAB PO SCH (09:03)
[2018-07-19] MEDS: Nebivolol HCl 5 MG TAB PO SCH (09:04)
[2018-07-19] MEDS: Allopurinol 100 MG TAB PO SCH (09:04)
[2018-07-19] MEDS: Famotidine 20 MG TAB PO SCH ×2 (09:05→20:39)
[2018-07-19] MEDS: Atorvastatin Calcium 40 MG TAB PO SCH (09:05)
--- NOTE | 2018-07-19 10:14 | PRG ---
DATE OF SERVICE: 07/19/2018 The patient is a 68-year-old male, status post left-sided stereotactic brain biopsy for multiple left-sided lesions suspicious for metastatic disease. He has been monitored closely on the Oncology unit and remains neurologically at his baseline. He is agitated, impulsive, and requires a sitter. He continues to have right-sided hemiparesis, which is unchanged. He is otherwise tolerating a regular diet, voiding appropriately, and we are able to assist him with ambulation. Dr. Cornejo also recently saw the patient and has recommended radiation treatments for further management of his high-grade malignancy. We planned to initially send the patient to rehab; however, transportation back and forth for radiation treatments will be an issue. Therefore, he will likely continue to remain in the Oncology unit. On exam this morning, the patient is A and O x2. He is agitated, but will cooperate with the exam. He has right-sided hemiparesis, which is unchanged. His dressing is dry and intact. The patient will continue to remain in the Oncology unit for treatment with radiation per Dr. Cornejo's team. I have discussed with the Sound Service and we will go ahead and sign over to them. This patient does not appear to have any acute neurologic change or any neurosurgical issue at this time. Please reach out to Neurosurgery for additional questions or concerns. Job ID: [id number]
--- NOTE | 2018-07-19 10:49 | PRG ---
DATE OF SERVICE: 07/19/2018 SUBJECTIVE: Mr. 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 He has several large hemorrhagic brain metastasis. He has undergone stereotactic biopsy only. We are waiting on immunostains for an exact tissue diagnosis other than carcinoma. Subjectively, he is about the same. He still has an expressive aphasia. He follows commands mostly, but has agitation and is requiring a sitter 24 hours a day at the present time. He has no new complaints this morning. OBJECTIVE: VITAL SIGNS: Height 6 feet and 5 inches and weight 196 pounds. Blood pressure is 137/75, pulse is 46, respirations are 14, temperature 98.4, and O2 saturation 94% on 2 L. NEUROLOGIC: He is unchanged. He still has expressive aphasia. He is moving all extremities. ASSESSMENT: Mr. Fernández is a 68-year-old gentleman with metastatic carcinoma of unknown primary. We are still waiting immunostains for more specific diagnosis. PLAN: We will make plans for him to begin his radiation therapy in the near future. I have discussed this with Dr. Rivera. He wants us to wait until Sunday to start his radiation because of his stereotactic biopsy. We will bring him over for simulation today, so that we can hopefully start his treatment on Sunday. I have discussed this with Mr. Fernández and also with his and children, who are all in agreement. I am not sure what the status is in terms of inpatient rehab stay. As of yesterday evening, he could not go to rehab because he was requiring a sitter 24 hours a day and was not able to reliably push the button to call for nurse if he needed help. Additionally, I am not sure if he can go to inpatient rehab with him having radiation therapy. This remains to be determined, it is a very unfortunate situation because of the depth of neurological deficit. Also, I am not sure if he would benefit that much from rehab until he has had treatment to his brain metastasis since those are the culprits of his neurological deficit. If we delay radiation therapy for an inpatient rehab stay, then the lesions will just continue to grow over that several week time frame and I doubt that he would make much neurological improvement. Hopefully, if he cannot have an inpatient rehab stay and have radiation at the same time, then he could do inpatient rehab after his radiation is completed. I am planning a two-week course of radiation therapy. Also, I would not recommend tapering his dexamethasone at this time, since he presented with evidence of herniation. I think that we should slowly taper his Decadron after the radiation therapy. I have written new orders for dexamethasone. Job ID: [id number]
[2018-07-19] MEDS: Dexamethasone 4 MG TAB PO SCH ×2 (14:26→20:39)
[2018-07-20] MEDS ORDERED: Dexamethasone 1 MG TAB PO SCH (09:00)
[2018-07-20] MEDS: Atorvastatin Calcium 40 MG TAB PO SCH (09:28)
[2018-07-20] MEDS: Famotidine 20 MG TAB PO SCH ×2 (09:29→20:17)
[2018-07-20] MEDS: Nebivolol HCl 5 MG TAB PO SCH (09:29)
[2018-07-20] MEDS: Dexamethasone 4 MG TAB PO SCH ×3 (09:29→20:17)
[2018-07-20] MEDS: Allopurinol 100 MG TAB PO SCH (09:29)
[2018-07-20] MEDS: Hydrochlorothiazide 25 MG TAB PO SCH (09:29)
[2018-07-20] MEDS: Amlodipine 10 MG TAB PO SCH (09:29)
--- NOTE | 2018-07-20 12:54 | PDOC.PN ---
- Subjective Encounter Start Date: 07/19/18 Encounter Start Time: 10:30 Subjective: pt up in bed no complains - Objective Vital Signs & Weight: Vital Signs (12 hours) Temp Pulse Resp BP BP BP Pulse Ox 07/20/18 12:42 97.4 F L 49 L 14 143/68 H 96 07/20/18 09:32 97.6 F 57 L 16 124/68 96 07/20/18 09:29 57 L 124/68 07/20/18 08:00 96 07/20/18 03:29 98.0 F 50 L 16 133/66 94 L Weight Admit Weight 204 lb 2.369 oz Weight 191 lb Most Recent Monitor Data Heart Rate from ECG 40 NIBP 124/63 NIBP BP-Mean 83 Respiration from ECG 13 SpO2 95 I&O: 07/19/18 07/20/18 07/21/18 06:59 06:59 06:59 Intake Total 1980 840 Output Total 1595 600 Balance 385 240 Result Diagrams: 07/11/18 04:26 07/11/18 04:26 Phys Exam - Physical Examination Neck: no nodes, no JVD, supple, full ROM Respiratory: no wheezing, no rales, no rhonchi, wheezing present, clear to auscultation bilateral Cardiovascular: RRR, no significant murmur, no rub, gallop, irregular Gastrointestinal: soft, non-tender, no distention, positive bowel sounds Dx/Plan (1) Neoplasm of brain causing mass 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 structures Code(s): D49.6 - NEOPLASM OF UNSPECIFIED BEHAVIOR OF BRAIN Status: Acute Comment: Pt to have stereotactic biopsy day after tomorrow. (2) Alcohol abuse Code(s): F10.10 - ALCOHOL ABUSE, UNCOMPLICATED Status: Acute (3) Brain metastases Code(s): C79.31 - SECONDARY MALIGNANT NEOPLASM OF BRAIN Status: Acute (4) Tobacco abuse Code(s): Z72.0 - TOBACCO USE Status: Acute (5) Hyperlipidemia Code(s): E78.5 - HYPERLIPIDEMIA, UNSPECIFIED Status: Chronic Comment: on atorvastatin (6) Hypertension Code(s): I10 - ESSENTIAL (PRIMARY) HYPERTENSION Status: Chronic Comment: controlled - Plan pt to start radiation. spoke with about possible discharge -: she cannot take care of him at home. -: will talk to case managment * . Review of Systems - Review of Systems Respiratory: negative: Cough, Dry, Shortness of Breath, Hemoptysis, SOB with Excertion, Pleuritic Pain, Sputum, Wheezing Cardiovascular: negative: chest pain, palpitations, orthopnea, paroxysmal nocturnal dyspnea, edema, light headedness, other Gastrointestinal: negative: Nausea, Vomiting, Abdominal Pain, Diarrhea, Constipation, Melena, Hematochezia, Other - Medications/Allergies Allergies/Adverse Reactions: Allergies Allergy/AdvReac Type Severity Reaction Status Date / Time benazepril Allergy Verified 07/15/18 11:05 Medications: Current Medications Allopurinol (Zyloprim) [address] [facility] Last Admin: 07/20/18 09:29 Dose: 200 mg Amlodipine Besylate (Norvasc) [address] [facility] Last Admin: 07/20/18 09:29 Dose: 10 mg Atorvastatin Calcium (Lipitor) [address] [facility] Last Admin: 07/20/18 09:28 Dose: 40 mg Clonidine (Catapres) 0.1 mg PO Q4H PRN PRN Reason: SBP Greater Than 170 Last Admin: 07/18/18 21:22 Dose: 0.1 mg Dexamethasone (Decadron) [address] [facility] Last Admin: 07/20/18 09:29 Dose: 4 mg Diazepam (Valium) 5 mg PO Q4H PRN PRN Reason: ASE >10 Diazepam (Valium) 10 mg PO Q4H PRN PRN Reason: ASE > 10 Last Admin: 07/19/18 09:00 Dose: 10 mg Famotidine (Pepcid) [address] [facility] Last Admin: 07/20/18 09:29 Dose: 20 mg Hydralazine HCl (Apresoline) 10 mg SLOW IVP Q6H PRN PRN Reason: SBP Greater Than 170 Last Admin: 07/18/18 04:31 Dose: 10 mg Hydrochlorothiazide (Hydrochlorothiazide) 12.[address] [facility] Last Admin: 07/20/18 09:29 Dose: 12.5 mg Nicardipine HCl 25 mg/ Sodium (Chloride) 250 mls @ 0 mls/hr IVPB INF PRN; Protocol PRN Reason: SBP >140 Nebivolol (Bystolic) [address] [facility] Last Admin: 07/20/18 09:29 Dose: 10 mg Ondansetron HCl (Zofran) 4 mg IVP BIDPRN PRN PRN Reason: Nausea/Vomiting Quetiapine Fumarate (Seroquel) 12.5 mg PO HS [facility] Sodium Chloride (Flush - Normal Saline) 10 ml IVF PRN PRN PRN Reason: Saline Flush Last Admin: 07/18/18 04:31 Dose: 10 ml
--- NOTE | 2018-07-20 12:55 | PDOC.PN ---
- Subjective Encounter Start Date: 07/20/18 Encounter Start Time: 11:30 Subjective: pt up in bed appears drowsy but arousable - Objective Vital Signs & Weight: Vital Signs (12 hours) Temp Pulse Resp BP BP BP Pulse Ox 07/20/18 12:42 97.4 F L 49 L 14 143/68 H 96 07/20/18 09:32 97.6 F 57 L 16 124/68 96 07/20/18 09:29 57 L 124/68 07/20/18 08:00 96 07/20/18 03:29 98.0 F 50 L 16 133/66 94 L Weight Admit Weight 204 lb 2.369 oz Weight 191 lb Most Recent Monitor Data Heart Rate from ECG 40 NIBP 124/63 NIBP BP-Mean 83 Respiration from ECG 13 SpO2 95 I&O: 07/19/18 07/20/18 07/21/18 06:59 06:59 06:59 Intake Total 1980 840 Output Total 1595 600 Balance 385 240 Result Diagrams: 07/11/18 04:26 07/11/18 04:26 Phys Exam - Physical Examination Respiratory: no wheezing, no rales, no rhonchi, wheezing present, clear to auscultation bilateral Cardiovascular: RRR, no significant murmur, no rub, gallop, irregular Gastrointestinal: soft, non-tender, no distention, positive bowel sounds Dx/Plan (1) Neoplasm of brain causing mass 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 structures Code(s): D49.6 - NEOPLASM OF UNSPECIFIED BEHAVIOR OF BRAIN Status: Acute Comment: Pt to have stereotactic biopsy day after tomorrow. (2) Alcohol abuse Code(s): F10.10 - ALCOHOL ABUSE, UNCOMPLICATED Status: Acute (3) Brain metastases Code(s): C79.31 - SECONDARY MALIGNANT NEOPLASM OF BRAIN Status: Acute (4) Tobacco abuse Code(s): Z72.0 - TOBACCO USE Status: Acute (5) Hyperlipidemia Code(s): E78.5 - HYPERLIPIDEMIA, UNSPECIFIED Status: Chronic Comment: on atorvastatin (6) Hypertension Code(s): I10 - ESSENTIAL (PRIMARY) HYPERTENSION Status: Chronic Comment: controlled - Plan pt appear calm, will discontinue sitter -: will start pt on seroquel low dose at night -: pt could go to [place] and go to radiation -: will ask casemanagment. Updated charge nurse. -: will add stool softners. pt will need close monitoring for falls * . Review of Systems - Review of Systems Cardiovascular: negative: chest pain, palpitations, orthopnea, paroxysmal nocturnal dyspnea, edema, light headedness, other - Medications/Allergies Allergies/Adverse Reactions: Allergies Allergy/AdvReac Type Severity Reaction Status Date / Time benazepril Allergy Verified 07/15/18 11:05 Medications: Current Medications Allopurinol (Zyloprim) 200 mg PO DAILY [facility] Last Admin: 07/20/18 09:29 Dose: 200 mg Amlodipine Besylate (Norvasc) 10 mg PO DAILY [facility] Last Admin: 07/20/18 09:29 Dose: 10 mg Atorvastatin Calcium (Lipitor) 40 mg PO DAILY [facility] Last Admin: 07/20/18 09:28 Dose: 40 mg Clonidine (Catapres) 0.1 mg PO Q4H PRN PRN Reason: SBP Greater Than 170 Last Admin: 07/18/18 21:22 Dose: 0.1 mg Dexamethasone (Decadron) 4 mg PO TID [facility] Last Admin: 07/20/18 09:29 Dose: 4 mg Diazepam (Valium) 5 mg PO Q4H PRN PRN Reason: ASE >10 Diazepam (Valium) 10 mg PO Q4H PRN PRN Reason: ASE > 10 Last Admin: 07/19/18 09:00 Dose: 10 mg Famotidine (Pepcid) 20 mg PO BID [facility] Last Admin: 07/20/18 09:29 Dose: 20 mg Hydralazine HCl (Apresoline) 10 mg SLOW IVP Q6H PRN PRN Reason: SBP Greater Than 170 Last Admin: 07/18/18 04:31 Dose: 10 mg Hydrochlorothiazide (Hydrochlorothiazide) 12.5 mg PO DAILY [facility] Last Admin: 07/20/18 09:29 Dose: 12.5 mg Nicardipine HCl 25 mg/ Sodium (Chloride) 250 mls @ 0 mls/hr IVPB INF PRN; Protocol PRN Reason: SBP >140 Nebivolol (Bystolic) 10 mg PO DAILY [facility] Last Admin: 07/20/18 09:29 Dose: 10 mg Ondansetron HCl (Zofran) 4 mg IVP BIDPRN PRN PRN Reason: Nausea/Vomiting Quetiapine Fumarate (Seroquel) 12.5 mg PO HS [facility] Sodium Chloride (Flush - Normal Saline) 10 ml IVF PRN PRN PRN Reason: Saline Flush Last Admin: 07/18/18 04:31 Dose: 10 ml
[2018-07-20] MEDS ORDERED: Polyethylene Glycol 3350 17 GM Packet PO PRN (12:56)
--- NOTE | 2018-07-20 12:57 | PDOC.EVN ---
Event Note - Event Note Event Note: pt on steroids which will be tapered by radonc.
[2018-07-20] MEDS ORDERED: Bisacodyl 5 MG TAB PO SCH (13:00)
[2018-07-20] MEDS: Senokot S 8.6-50 MG TAB PO SCH (20:17)
[2018-07-21] MEDS: Nebivolol HCl 5 MG TAB PO SCH (08:44)
[2018-07-21] MEDS: Polyethylene Glycol 3350 17 GM Packet PO SCH (08:44)
[2018-07-21] MEDS: Dexamethasone 4 MG TAB PO SCH ×3 (08:45→20:06)
[2018-07-21] MEDS: Atorvastatin Calcium 40 MG TAB PO SCH (08:45)
[2018-07-21] MEDS: Amlodipine 10 MG TAB PO SCH (08:45)
[2018-07-21] MEDS: Senokot S 8.6-50 MG TAB PO SCH ×2 (08:45→20:06)
[2018-07-21] MEDS: Hydrochlorothiazide 25 MG TAB PO SCH (08:45)
[2018-07-21] MEDS: Famotidine 20 MG TAB PO SCH ×2 (08:45→20:06)
[2018-07-21] MEDS: Allopurinol 100 MG TAB PO SCH (08:45)
--- NOTE | 2018-07-21 17:22 | PDOC.PN ---
- Subjective Encounter Start Date: 07/21/18 Encounter Start Time: 17:20 Subjective: f/u for metastatic brain neoplasm s/p stereotactic brain bx with final -: pathology consistent with melanoma. Plans for XRT x 2 weeks and tx -: with Dexamethasone. - Objective MAR Reviewed: Yes Vital Signs & Weight: Vital Signs (12 hours) Temp Pulse Resp BP BP Pulse Ox 07/21/18 08:45 48 L 07/21/18 08:00 96 07/21/18 07:33 97.5 F L 48 L 16 155/72 H 96 07/21/18 06:37 97.6 F 46 L 12 157/70 H Weight Admit Weight 204 lb 2.369 oz Weight 189 lb 9.561 oz Most Recent Monitor Data Heart Rate from ECG 40 NIBP 124/63 NIBP BP-Mean 83 Respiration from ECG 13 SpO2 95 I&O: 07/20/18 07/21/18 07/22/18 06:59 06:59 06:59 Intake Total 840 720 300 Output Total 600 300 Balance 240 420 300 Result Diagrams: 07/11/18 04:26 07/11/18 04:26 Phys Exam - Physical Examination Constitutional: NAD HEENT: PERRLA, sclera anicteric, oral pharynx no lesions Neck: no nodes, no JVD, supple, full ROM Respiratory: no wheezing, no rales, no rhonchi, clear to auscultation bilateral S1, S2 Cardiovascular: RRR, no significant murmur, no rub, gallop Gastrointestinal: soft, non-tender, no distention, positive bowel sounds Musculoskeletal: no edema, pulses present expressive aphasia Neurological: normal sensation, moves all 4 limbs Skin: normal turgor, cap refill <2 seconds Dx/Plan (1) Brain metastases Code(s): C79.31 - SECONDARY MALIGNANT NEOPLASM OF BRAIN Status: Acute Comment: 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, plan for XRT to begin 07/22/18, continue Dexamethasone (2) Neoplasm of brain causing mass 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 structures Code(s): D49.6 - NEOPLASM OF UNSPECIFIED BEHAVIOR OF BRAIN Status: Acute Comment: XRT planned 07/22/18, Dexamethasone (3) Tobacco abuse Code(s): Z72.0 - TOBACCO USE Status: Chronic Comment: Tobacco cessation resources (4) Hypertension Code(s): I10 - ESSENTIAL (PRIMARY) HYPERTENSION Status: Chronic Qualifiers: Hypertension type: essential hypertension Qualified Code(s): I10 - Essential (primary) hypertension Comment: Continue Norvasc, Bystolic and HCTZ (5) Alcohol abuse Code(s): F10.10 - ALCOHOL ABUSE, UNCOMPLICATED Status: Chronic Comment: ASE protocol initially now d/c, no withdrawal sx - Plan PT/OT, social economist, out of bed/ambulate, DVT proph w/SCDs Stable currently -: Continue Dexamethasone 4mg TID -: XRT planned starting 07/22/18 -: Continue Norvasc, Bystolic and HCTZ -: SNF options per CM * .
[2018-07-22] MEDS ORDERED: Dexamethasone 1 MG TAB PO SCH (09:00)
[2018-07-22] MEDS: Allopurinol 100 MG TAB PO SCH (09:15)
[2018-07-22] MEDS: Dexamethasone 4 MG TAB PO SCH ×3 (09:15→20:23)
[2018-07-22] MEDS: Polyethylene Glycol 3350 17 GM Packet PO SCH (09:15)
[2018-07-22] MEDS: Nebivolol HCl 5 MG TAB PO SCH (09:15)
[2018-07-22] MEDS: Atorvastatin Calcium 40 MG TAB PO SCH (09:15)
[2018-07-22] MEDS: Senokot S 8.6-50 MG TAB PO SCH ×2 (09:16→20:23)
[2018-07-22] MEDS: Famotidine 20 MG TAB PO SCH ×2 (09:16→20:23)
[2018-07-22] MEDS: Diazepam 5 MG TAB PO PRN (09:16)
[2018-07-22] MEDS: Amlodipine 10 MG TAB PO SCH (09:16)
[2018-07-22] MEDS: Hydrochlorothiazide 25 MG TAB PO SCH (09:18)
--- NOTE | 2018-07-22 16:06 | PDOC.PN ---
- Subjective Encounter Start Date: 07/22/18 Encounter Start Time: 12:45 Encephalopathic. - Objective Vital Signs & Weight: Vital Signs (12 hours) Temp Pulse Resp BP BP Pulse Ox 07/22/18 09:16 47 L 139/69 07/22/18 08:00 97 07/22/18 07:39 96.4 F L 47 L 16 139/69 97 Weight Admit Weight 204 lb 2.369 oz Weight 189 lb Most Recent Monitor Data Heart Rate from ECG 40 NIBP 124/63 NIBP BP-Mean 83 Respiration from ECG 13 SpO2 95 I&O: 07/21/18 07/22/18 07/23/18 06:59 06:59 06:59 Intake Total 720 900 Output Total 300 275 Balance 420 625 Result Diagrams: 07/11/18 04:26 07/11/18 04:26 Phys Exam - Physical Examination Encephalopathic. Respiratory: no wheezing, no rales, no rhonchi Cardiovascular: RRR, no significant murmur Gastrointestinal: soft, non-tender, no distention Musculoskeletal: no edema Dx/Plan - Plan * Melanoma in the brain. * Going to first XRT now. * Discussed with Oncology. * Patient could have outpatient therapy, but difficult placement issue.
[2018-07-23] MEDS: Dexamethasone 4 MG TAB PO SCH ×3 (08:38→21:37)
[2018-07-23] MEDS: Famotidine 20 MG TAB PO SCH ×2 (08:38→21:37)
[2018-07-23] MEDS: Amlodipine 10 MG TAB PO SCH (08:38)
[2018-07-23] MEDS: Atorvastatin Calcium 40 MG TAB PO SCH (08:38)
[2018-07-23] MEDS: Allopurinol 100 MG TAB PO SCH (08:39)
[2018-07-23] MEDS: Hydrochlorothiazide 25 MG TAB PO SCH (08:39)
[2018-07-23] MEDS: Nebivolol HCl 5 MG TAB PO SCH (08:42)
[2018-07-23] MEDS: Polyethylene Glycol 3350 17 GM Packet PO SCH (08:43)
[2018-07-23] MEDS: Senokot S 8.6-50 MG TAB PO SCH ×2 (08:43→21:37)
--- NOTE | 2018-07-23 21:41 | PDOC.PN ---
- Subjective Encounter Start Date: 07/23/18 Encounter Start Time: 14:30 Non verbal. Nurses indicate he has communicated a little. - Objective Vital Signs & Weight: Vital Signs (12 hours) Temp Pulse Resp BP Pulse Ox 07/23/18 20:00 97.8 F 58 L 16 145/80 H 93 L Weight Admit Weight 204 lb 2.369 oz Weight 186 lb Most Recent Monitor Data Heart Rate from ECG 40 NIBP 124/63 NIBP BP-Mean 83 Respiration from ECG 13 SpO2 95 I&O: 07/22/18 07/23/18 07/24/18 06:59 06:59 06:59 Intake Total 900 330 750 Output Total 275 200 Balance 625 130 750 Result Diagrams: 07/11/18 04:26 07/11/18 04:26 Phys Exam - Physical Examination Constitutional: NAD Respiratory: no wheezing, no rales, no rhonchi, clear to auscultation bilateral Cardiovascular: RRR, no significant murmur Gastrointestinal: soft, non-tender, no distention Musculoskeletal: no edema Encephalopathic. Wakes, does not make eye contact. 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, plan for XRT to begin 07/22/18, continue Dexamethasone (3) Alcohol abuse Code(s): F10.10 - ALCOHOL ABUSE, UNCOMPLICATED Status: Chronic Comment: ASE protocol initially now d/c, no withdrawal sx (4) Hyperlipidemia Code(s): E78.5 - HYPERLIPIDEMIA, UNSPECIFIED Status: Chronic Comment: on atorvastatin (5) Hypertension Code(s): I10 - ESSENTIAL (PRIMARY) HYPERTENSION Status: Chronic Qualifiers: Hypertension type: essential hypertension Qualified Code(s): I10 - Essential (primary) hypertension Comment: Continue Norvasc, Bystolic and HCTZ (6) Tobacco abuse Code(s): Z72.0 - TOBACCO USE Status: Chronic Comment: Tobacco cessation resources - Plan * Getting XRT. * Will see how he responds. * Med Onc does not feel there is a significant role for chemo. * Will need placement. Family has been clear that they will not be able to manage him at home.
[2018-07-23] MEDS ORDERED: Milk Of Magnesia 30 ML UDCUP PO SCH (21:45)
[2018-07-23] MEDS ORDERED: Milk Of Magnesia 30 ML UDCUP PO PRN (21:46)
[2018-07-24] MEDS: Famotidine 20 MG TAB PO SCH ×2 (08:08→20:03)
[2018-07-24] MEDS: Senokot S 8.6-50 MG TAB PO SCH ×2 (08:08→20:02)
[2018-07-24] MEDS: Amlodipine 10 MG TAB PO SCH (08:08)
[2018-07-24] MEDS: Polyethylene Glycol 3350 17 GM Packet PO SCH (08:08)
[2018-07-24] MEDS: Dexamethasone 4 MG TAB PO SCH ×3 (08:08→20:02)
[2018-07-24] MEDS: Atorvastatin Calcium 40 MG TAB PO SCH (08:09)
[2018-07-24] MEDS: Allopurinol 100 MG TAB PO SCH (08:09)
[2018-07-24] MEDS: Hydrochlorothiazide 25 MG TAB PO SCH (08:09)
--- NOTE | 2018-07-24 13:51 | PDOC.PN ---
- Subjective Encounter Start Date: 07/24/18 Encounter Start Time: 12:15 -: non-verbal Son at the bedside. - Objective Vital Signs & Weight: Vital Signs (12 hours) Temp Pulse Resp BP BP BP Pulse Ox 07/24/18 08:37 125/83 07/24/18 08:08 50 L 128/68 07/24/18 08:00 94 L 07/24/18 07:45 97.6 F 50 L 16 128/68 94 L Weight Admit Weight 204 lb 2.369 oz Weight 187 lb 11.2 oz Most Recent Monitor Data Heart Rate from ECG 40 NIBP 124/63 NIBP BP-Mean 83 Respiration from ECG 13 SpO2 95 I&O: 07/23/18 07/24/18 07/25/18 06:59 06:59 06:59 Intake Total 330 750 Output Total 200 Balance 130 750 Result Diagrams: 07/11/18 04:26 07/11/18 04:26 Phys Exam - Physical Examination Constitutional: NAD Does not engage or track. Respiratory: no wheezing, no rales, no rhonchi, clear to auscultation bilateral Cardiovascular: RRR, no significant murmur, no rub Gastrointestinal: soft, no distention, positive bowel sounds Musculoskeletal: no edema Does not appear to move right side much. Encephalopathic. 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, plan for XRT to begin 07/22/18, continue Dexamethasone (3) Alcohol abuse Code(s): F10.10 - ALCOHOL ABUSE, UNCOMPLICATED Status: Chronic Comment: ASE protocol initially now d/c, no withdrawal sx (4) Hyperlipidemia Code(s): E78.5 - HYPERLIPIDEMIA, UNSPECIFIED Status: Chronic Comment: on atorvastatin (5) Hypertension Code(s): I10 - ESSENTIAL (PRIMARY) HYPERTENSION Status: Chronic Qualifiers: Hypertension type: essential hypertension Qualified Code(s): I10 - Essential (primary) hypertension Comment: Continue Norvasc, Bystolic and HCTZ (6) Tobacco abuse Code(s): Z72.0 - TOBACCO USE Status: Chronic Comment: Tobacco cessation resources - Plan * Continuing XRT. * Working on placement options through CM. * No good chemo options per Med Onc. * Hope is there may be some improvement with the XRT as far as quality of function. * Otherwise, palliative mode.
[2018-07-24] MEDS: Nebivolol HCl 5 MG TAB PO SCH (15:22)
[2018-07-25] MEDS ORDERED: Fleet Enema 133 ML BOT PR SCH (05:30)
[2018-07-25] MEDS: Polyethylene Glycol 3350 17 GM Packet PO SCH (08:09)
[2018-07-25] MEDS: Nebivolol HCl 5 MG TAB PO SCH (08:09)
[2018-07-25] MEDS: Senokot S 8.6-50 MG TAB PO SCH ×2 (08:10→21:14)
[2018-07-25] MEDS: Allopurinol 100 MG TAB PO SCH (08:10)
[2018-07-25] MEDS: Dexamethasone 4 MG TAB PO SCH ×3 (08:10→21:15)
[2018-07-25] MEDS: Hydrochlorothiazide 25 MG TAB PO SCH (08:10)
[2018-07-25] MEDS: Atorvastatin Calcium 40 MG TAB PO SCH (08:10)
[2018-07-25] MEDS: Amlodipine 10 MG TAB PO SCH (08:10)
[2018-07-25] MEDS: Famotidine 20 MG TAB PO SCH ×2 (08:10→21:15)
[2018-07-25] MEDS: cloNIDine 0.1 MG TAB PO PRN (10:48)
--- NOTE | 2018-07-25 14:52 | PDOC.PN ---
- Subjective Encounter Start Date: 07/25/18 Encounter Start Time: 10:45 Subjective: pt up in bed does not say very much, responds to verbal command - Objective Resuscitation Status - Order Detail: 07/24/18 16:02 Resuscitation Status Routine Resuscitation Status: DNAR: NO Resuscitation Discussed with: Patient, Vital Signs & Weight: Vital Signs (12 hours) Temp Pulse Resp BP BP Pulse Ox 07/25/18 10:48 97.9 F 53 L 16 183/77 H 183/77 H 93 L 07/25/18 08:10 49 L 165/80 H 07/25/18 08:00 92 L 07/25/18 07:39 97.4 F L 49 L 18 165/80 H 92 L Weight Admit Weight 204 lb 2.369 oz Weight 187 lb Most Recent Monitor Data Heart Rate from ECG 40 NIBP 124/63 NIBP BP-Mean 83 Respiration from ECG 13 SpO2 95 I&O: 07/24/18 07/25/18 07/26/18 06:59 06:59 06:59 Intake Total 750 527 Balance 750 527 Result Diagrams: 07/11/18 04:26 07/11/18 04:26 Phys Exam - Physical Examination Neck: no nodes, no JVD, supple, full ROM Respiratory: no wheezing, no rales, no rhonchi, wheezing present, clear to auscultation bilateral Cardiovascular: RRR, no significant murmur, no rub, gallop, irregular Gastrointestinal: soft, non-tender, no distention, positive bowel sounds Dx/Plan (1) Neoplasm of brain causing mass 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 structures Code(s): D49.6 - NEOPLASM OF UNSPECIFIED BEHAVIOR OF BRAIN Status: Acute Comment: XRT planned 07/22/18, Dexamethasone (2) Alcohol abuse Code(s): F10.10 - ALCOHOL ABUSE, UNCOMPLICATED Status: Chronic Comment: ASE protocol initially now d/c, no withdrawal sx (3) Brain metastases Code(s): C79.31 - SECONDARY MALIGNANT NEOPLASM OF BRAIN Status: Acute Comment: 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 he is undergoing radiation but -: he is getting weaker. will talk with in am. * . Review of Systems - Review of Systems Respiratory: negative: Cough, Dry, Shortness of Breath, Hemoptysis, SOB with Excertion, Pleuritic Pain, Sputum, Wheezing Cardiovascular: negative: chest pain, palpitations, orthopnea, paroxysmal nocturnal dyspnea, edema, light headedness, other Gastrointestinal: negative: Nausea, Vomiting, Abdominal Pain, Diarrhea, Constipation, Melena, Hematochezia, Other - Medications/Allergies Allergies/Adverse Reactions: Allergies Allergy/AdvReac Type Severity Reaction Status Date / Time benazepril Allergy Verified 07/15/18 11:05 Medications: Current Medications Allopurinol (Zyloprim) 200 mg PO DAILY [facility] Last Admin: 07/25/18 08:10 Dose: 200 mg Amlodipine Besylate (Norvasc) 10 mg PO DAILY [facility] Last Admin: 07/25/18 08:10 Dose: 10 mg Atorvastatin Calcium (Lipitor) 40 mg PO DAILY [facility] Last Admin: 07/25/18 08:10 Dose: 40 mg Clonidine (Catapres) 0.1 mg PO Q4H PRN PRN Reason: SBP Greater Than 170 Last Admin: 07/25/18 10:48 Dose: 0.1 mg Dexamethasone (Decadron) 4 mg PO TID [facility] Last Admin: 07/25/18 08:10 Dose: 4 mg Diazepam (Valium) 5 mg PO Q4H PRN PRN Reason: ASE >10 Diazepam (Valium) 10 mg PO Q4H PRN PRN Reason: ASE > 10 Last Admin: 07/22/18 09:16 Dose: 10 mg Famotidine (Pepcid) 20 mg PO BID [facility] Last Admin: 07/25/18 08:10 Dose: 20 mg Hydralazine HCl (Apresoline) 10 mg SLOW IVP Q6H PRN PRN Reason: SBP Greater Than 170 Last Admin: 07/18/18 04:31 Dose: 10 mg Hydrochlorothiazide (Hydrochlorothiazide) 12.5 mg PO DAILY [facility] Last Admin: 07/25/18 08:10 Dose: 12.5 mg Nicardipine HCl 25 mg/ Sodium (Chloride) 250 mls @ 0 mls/hr IVPB INF PRN; Protocol PRN Reason: SBP >140 Nebivolol (Bystolic) 5 mg PO DAILY [facility] Last Admin: 07/25/18 08:09 Dose: 5 mg Ondansetron HCl (Zofran) 4 mg IVP BIDPRN PRN PRN Reason: Nausea/Vomiting Polyethylene Glycol (Miralax) 17 gm PO DAILY [facility] Last Admin: 07/25/18 08:09 Dose: 17 gm Polyethylene Glycol (Miralax) 17 gm PO DAILYPRN PRN PRN Reason: Constipation Quetiapine Fumarate (Seroquel) 12.5 mg PO HS [facility] Last Admin: 07/24/18 20:02 Dose: 12.5 mg Senna/Docusate Sodium (Senokot S) 1 tab PO BID [facility] Last Admin: 07/25/18 08:10 Dose: 1 tab Sodium Chloride (Flush - Normal Saline) 10 ml IVF PRN PRN PRN Reason: Saline Flush Last Admin: 07/18/18 04:31 Dose: 10 ml
[2018-07-25] MEDS: Diazepam 5 MG TAB PO PRN (21:15)
[2018-07-26] MEDS: Famotidine 20 MG TAB PO SCH ×2 (09:06→21:08)
[2018-07-26] MEDS: Hydrochlorothiazide 25 MG TAB PO SCH (09:06)
[2018-07-26] MEDS: Polyethylene Glycol 3350 17 GM Packet PO SCH (09:06)
[2018-07-26] MEDS: Amlodipine 10 MG TAB PO SCH (09:08)
[2018-07-26] MEDS: Dexamethasone 4 MG TAB PO SCH ×3 (09:09→21:08)
[2018-07-26] MEDS: Allopurinol 100 MG TAB PO SCH (09:09)
[2018-07-26] MEDS: Senokot S 8.6-50 MG TAB PO SCH ×2 (09:09→21:08)
[2018-07-26] MEDS: Atorvastatin Calcium 40 MG TAB PO SCH (09:09)
[2018-07-26] MEDS: Nebivolol HCl 5 MG TAB PO SCH (09:36)
[2018-07-26] MEDS: Diazepam 5 MG TAB PO PRN ×2 (15:00→21:08)
[2018-07-27] MEDS: Polyethylene Glycol 3350 17 GM Packet PO SCH (08:11)
[2018-07-27] MEDS: Atorvastatin Calcium 40 MG TAB PO SCH (08:12)
[2018-07-27] MEDS: Hydrochlorothiazide 25 MG TAB PO SCH (08:12)
[2018-07-27] MEDS: Allopurinol 100 MG TAB PO SCH (08:12)
[2018-07-27] MEDS: Amlodipine 10 MG TAB PO SCH (08:12)
[2018-07-27] MEDS: Nebivolol HCl 5 MG TAB PO SCH ×2 (08:12→08:18)
[2018-07-27] MEDS: Famotidine 20 MG TAB PO SCH ×2 (08:12→21:59)
[2018-07-27] MEDS: Senokot S 8.6-50 MG TAB PO SCH ×2 (08:12→21:59)
[2018-07-27] MEDS: Dexamethasone 4 MG TAB PO SCH ×3 (08:12→21:59)
--- NOTE | 2018-07-27 14:14 | PDOC.PN ---
- Subjective Encounter Start Date: 07/27/18 Encounter Start Time: 10:20 Subjective: pt up in bed no complains - Objective Resuscitation Status - Order Detail: 07/24/18 16:02 Resuscitation Status Routine Resuscitation Status: DNAR: NO Resuscitation Discussed with: Patient, Vital Signs & Weight: Vital Signs (12 hours) Temp Pulse Resp BP Pulse Ox 07/27/18 08:12 59 L 07/27/18 08:05 97.5 F L 54 L 18 112/71 96 Weight Admit Weight 204 lb 2.369 oz Weight 181 lb 2 oz Most Recent Monitor Data Heart Rate from ECG 40 NIBP 124/63 NIBP BP-Mean 83 Respiration from ECG 13 SpO2 95 I&O: 07/26/18 07/27/18 07/28/18 06:59 06:59 06:59 Intake Total 250 960 Balance 250 960 Result Diagrams: 07/11/18 04:26 07/11/18 04:26 Phys Exam - Physical Examination Neck: no nodes, no JVD, supple, full ROM Respiratory: no wheezing, no rales, no rhonchi, wheezing present, clear to auscultation bilateral Cardiovascular: RRR, no significant murmur, no rub, gallop, irregular Gastrointestinal: soft, non-tender, no distention, positive bowel sounds Dx/Plan (1) Neoplasm of brain causing mass 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 structures Code(s): D49.6 - NEOPLASM OF UNSPECIFIED BEHAVIOR OF BRAIN Status: Acute Comment: XRT planned 07/22/18, Dexamethasone (2) Alcohol abuse Code(s): F10.10 - ALCOHOL ABUSE, UNCOMPLICATED Status: Chronic Comment: [facility] protocol initially now d/c, no withdrawal sx (3) Brain metastases Code(s): C79.31 - SECONDARY MALIGNANT NEOPLASM OF BRAIN Status: Acute Comment: 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, plan for XRT to begin 07/22/18, continue Dexamethasone (4) Tobacco abuse Code(s): Z72.0 - TOBACCO USE Status: Chronic Comment: Tobacco cessation resources (5) Hyperlipidemia Code(s): E78.5 - HYPERLIPIDEMIA, UNSPECIFIED Status: Chronic Comment: on atorvastatin (6) Hypertension Code(s): I10 - ESSENTIAL (PRIMARY) HYPERTENSION Status: Chronic Qualifiers: Hypertension type: essential hypertension Qualified Code(s): I10 - Essential (primary) hypertension Comment: Continue Norvasc, Bystolic and HCTZ - Plan pt not eating much, will continue steroids -: awaiting placement once his radiation is done * . Review of Systems - Review of Systems Respiratory: negative: Cough, Dry, Shortness of Breath, Hemoptysis, SOB with Excertion, Pleuritic Pain, Sputum, Wheezing Cardiovascular: negative: chest pain, palpitations, orthopnea, paroxysmal nocturnal dyspnea, edema, light headedness, other Gastrointestinal: negative: Nausea, Vomiting, Abdominal Pain, Diarrhea, Constipation, Melena, Hematochezia, Other - Medications/Allergies Allergies/Adverse Reactions: Allergies Allergy/AdvReac Type Severity Reaction Status Date / Time benazepril Allergy Verified 07/15/18 11:05 Medications: Current Medications Allopurinol (Zyloprim) 200 mg PO DAILY [facility] Last Admin: 07/27/18 08:12 Dose: 200 mg Amlodipine Besylate (Norvasc) 10 mg PO DAILY [facility] Last Admin: 07/27/18 08:12 Dose: 10 mg Atorvastatin Calcium (Lipitor) 40 mg PO DAILY [facility] Last Admin: 07/27/18 08:12 Dose: 40 mg Clonidine (Catapres) 0.1 mg PO Q4H PRN PRN Reason: SBP Greater Than 170 Last Admin: 07/25/18 10:48 Dose: 0.1 mg Dexamethasone (Decadron) 4 mg PO TID [facility] Last Admin: 07/27/18 08:12 Dose: 4 mg Diazepam (Valium) 5 mg PO Q4H PRN PRN Reason: ASE >10 Last Admin: 07/26/18 21:08 Dose: 5 mg Diazepam (Valium) 10 mg PO Q4H PRN PRN Reason: ASE > 10 Last Admin: 07/22/18 09:16 Dose: 10 mg Famotidine (Pepcid) 20 mg PO BID [facility] Last Admin: 07/27/18 08:12 Dose: 20 mg Hydralazine HCl (Apresoline) 10 mg SLOW IVP Q6H PRN PRN Reason: SBP Greater Than 170 Last Admin: 07/18/18 04:31 Dose: 10 mg Hydrochlorothiazide (Hydrochlorothiazide) 12.5 mg PO DAILY [facility] Last Admin: 07/27/18 08:12 Dose: 12.5 mg Nicardipine HCl 25 mg/ Sodium (Chloride) 250 mls @ 0 mls/hr IVPB INF PRN; Protocol PRN Reason: SBP >140 Nebivolol (Bystolic) 5 mg PO DAILY [facility] Last Admin: 07/27/18 08:18 Dose: Not Given Ondansetron HCl (Zofran) 4 mg IVP BIDPRN PRN PRN Reason: Nausea/Vomiting Polyethylene Glycol (Miralax) 17 gm PO DAILY [facility] Last Admin: 07/27/18 08:11 Dose: 17 gm Polyethylene Glycol (Miralax) 17 gm PO DAILYPRN PRN PRN Reason: Constipation Quetiapine Fumarate (Seroquel) 12.5 mg PO HS [facility] Last Admin: 07/26/18 21:08 Dose: 12.5 mg Senna/Docusate Sodium (Senokot S) 1 tab PO BID [facility] Last Admin: 07/27/18 08:12 Dose: 1 tab Sodium Chloride (Flush - Normal Saline) 10 ml IVF PRN PRN PRN Reason: Saline Flush Last Admin: 07/18/18 04:31 Dose: 10 ml
[2018-07-27] MEDS: Diazepam 5 MG TAB PO PRN (21:59)
[2018-07-28] MEDS: Dexamethasone 4 MG TAB PO SCH ×3 (08:50→21:06)
[2018-07-28] MEDS: Nebivolol HCl 5 MG TAB PO SCH (08:50)
[2018-07-28] MEDS: Allopurinol 100 MG TAB PO SCH (08:50)
[2018-07-28] MEDS: Amlodipine 10 MG TAB PO SCH (08:50)
[2018-07-28] MEDS: Senokot S 8.6-50 MG TAB PO SCH ×2 (08:50→21:20)
[2018-07-28] MEDS: Polyethylene Glycol 3350 17 GM Packet PO SCH (08:50)
[2018-07-28] MEDS: Famotidine 20 MG TAB PO SCH ×2 (08:50→21:09)
[2018-07-28] MEDS: Hydrochlorothiazide 25 MG TAB PO SCH (08:51)
[2018-07-28] MEDS: Atorvastatin Calcium 40 MG TAB PO SCH (08:51)
--- NOTE | 2018-07-29 07:16 | PDOC.PN ---
- Subjective Encounter Start Date: 07/29/18 Encounter Start Time: 14:00 Subjective: Patient had radiation therapy this AM. No change in alertness. Only able to -: answer yes/no occ. - Objective Resuscitation Status - Order Detail: 07/24/18 16:02 Resuscitation Status Routine Resuscitation Status: DNAR: NO Resuscitation Discussed with: Patient, OLGA Reviewed: Yes Vital Signs & Weight: Vital Signs (12 hours) Temp Pulse Resp BP Pulse Ox 07/28/18 20:00 94 L 07/28/18 19:18 98.3 F 63 16 136/81 94 L Weight Admit Weight 204 lb 2.369 oz Weight 179 lb 6.4 oz Most Recent Monitor Data Heart Rate from ECG 40 NIBP 124/63 NIBP BP-Mean 83 Respiration from ECG 13 SpO2 95 I&O: 07/28/18 07/29/18 07/30/18 06:59 06:59 06:59 Intake Total 100 100 Balance 100 100 Result Diagrams: 07/11/18 04:26 07/11/18 04:26 Phys Exam - Physical Examination HEENT: moist MMs Respiratory: no wheezing, no rales, no rhonchi Cardiovascular: RRR Gastrointestinal: soft, positive bowel sounds Neurological: non-focal Deviation from normal: somnolent, minimally arousable, not verbal, not following commands Dx/Plan (1) Brain metastases Code(s): C79.31 - SECONDARY MALIGNANT NEOPLASM OF BRAIN Status: Acute Comment: 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, began 2 week XRT on 07/22/18, continue Dexamethasone until course complete (2) Neoplasm of brain causing mass 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 structures Code(s): D49.6 - NEOPLASM OF UNSPECIFIED BEHAVIOR OF BRAIN Status: Acute Comment: XRT started 07/22/18, dexamethasone until finished XRT (3) Alcohol abuse Code(s): F10.10 - ALCOHOL ABUSE, UNCOMPLICATED Status: Chronic Comment: ASE protocol initially now d/c, no withdrawal sx (4) Hyperlipidemia Code(s): E78.5 - HYPERLIPIDEMIA, UNSPECIFIED Status: Chronic Comment: on atorvastatin (5) Hypertension Code(s): I10 - ESSENTIAL (PRIMARY) HYPERTENSION Status: Chronic Qualifiers: Hypertension type: essential hypertension Qualified Code(s): I10 - Essential (primary) hypertension Comment: Continue Norvasc, Bystolic and HCTZ - Plan cont current plan of care, PT/OT plan for go to [facility] in [place] if accepted after complete 2 weeks of -: radiation therapy -: Not showing improvement at this point, if no improvement over the course of -: next week likely should go on hospice * . - Discharge Day Encounter end time: 14:15
[2018-07-29] MEDS: Amlodipine 10 MG TAB PO SCH (08:26)
[2018-07-29] MEDS: Allopurinol 100 MG TAB PO SCH (08:26)
[2018-07-29] MEDS: Senokot S 8.6-50 MG TAB PO SCH ×2 (08:26→21:51)
[2018-07-29] MEDS: Famotidine 20 MG TAB PO SCH ×2 (08:26→21:52)
[2018-07-29] MEDS: Hydrochlorothiazide 25 MG TAB PO SCH (08:27)
[2018-07-29] MEDS: Polyethylene Glycol 3350 17 GM Packet PO SCH (08:27)
[2018-07-29] MEDS: Atorvastatin Calcium 40 MG TAB PO SCH (08:27)
[2018-07-29] MEDS: Dexamethasone 4 MG TAB PO SCH ×3 (08:27→21:52)
[2018-07-29] MEDS: Nebivolol HCl 5 MG TAB PO SCH (08:36)
--- NOTE | 2018-07-30 00:43 | PDOC.PN ---
- Subjective Encounter Start Date: 07/26/18 Encounter Start Time: 12:30 Subjective: pt up in bed no complains - Objective Resuscitation Status - Order Detail: 07/24/18 16:02 Resuscitation Status Routine Resuscitation Status: DNAR: NO Resuscitation Discussed with: Patient, Vital Signs & Weight: Vital Signs (12 hours) Temp Pulse Resp BP Pulse Ox 07/29/18 20:00 94 L 07/29/18 19:57 97.4 F L 60 16 134/91 H 95 Weight Admit Weight 204 lb 2.369 oz Weight 179 lb 6.4 oz Most Recent Monitor Data Heart Rate from ECG 40 NIBP 124/63 NIBP BP-Mean 83 Respiration from ECG 13 SpO2 95 I&O: 07/28/18 07/29/18 07/30/18 06:59 06:59 06:59 Intake Total 100 100 300 Balance 100 100 300 Result Diagrams: 07/11/18 04:26 07/11/18 04:26 Phys Exam - Physical Examination Neck: no nodes, no JVD, supple, full ROM Respiratory: no wheezing, no rales, no rhonchi, wheezing present, clear to auscultation bilateral Cardiovascular: RRR, no significant murmur, no rub, gallop, irregular Gastrointestinal: soft, non-tender, no distention, positive bowel sounds Dx/Plan (1) Neoplasm of brain causing mass 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 structures Code(s): D49.6 - NEOPLASM OF UNSPECIFIED BEHAVIOR OF BRAIN Status: Acute Comment: XRT started 07/22/18, dexamethasone until finished XRT (2) Alcohol abuse Code(s): F10.10 - ALCOHOL ABUSE, UNCOMPLICATED Status: Chronic Comment: ASE protocol initially now d/c, no withdrawal sx (3) Brain metastases Code(s): C79.31 - SECONDARY MALIGNANT NEOPLASM OF BRAIN Status: Acute Comment: 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, began 2 week XRT on 07/22/18, continue Dexamethasone until course complete (4) Tobacco abuse Code(s): Z72.0 - TOBACCO USE Status: Chronic Comment: Tobacco cessation resources (5) Hyperlipidemia Code(s): E78.5 - HYPERLIPIDEMIA, UNSPECIFIED Status: Chronic Comment: on atorvastatin (6) Hypertension Code(s): I10 - ESSENTIAL (PRIMARY) HYPERTENSION Status: Chronic Qualifiers: Hypertension type: essential hypertension Qualified Code(s): I10 - Essential (primary) hypertension Comment: Continue Norvasc, Bystolic and HCTZ - Plan pt not eating much -: pt continues to get radiation -: will need placement once done with radiation * . Review of Systems - Review of Systems Respiratory: negative: Cough, Dry, Shortness of Breath, Hemoptysis, SOB with Excertion, Pleuritic Pain, Sputum, Wheezing Cardiovascular: negative: chest pain, palpitations, orthopnea, paroxysmal nocturnal dyspnea, edema, light headedness, other Gastrointestinal: negative: Nausea, Vomiting, Abdominal Pain, Diarrhea, Constipation, Melena, Hematochezia, Other - Medications/Allergies Allergies/Adverse Reactions: Allergies Allergy/AdvReac Type Severity Reaction Status Date / Time benazepril Allergy Verified 07/15/18 11:05 Medications: Current Medications Allopurinol (Zyloprim) 200 mg PO DAILY [facility] Last Admin: 07/29/18 08:26 Dose: 200 mg Amlodipine Besylate (Norvasc) 10 mg PO DAILY [facility] Last Admin: 07/29/18 08:26 Dose: 10 mg Atorvastatin Calcium (Lipitor) 40 mg PO DAILY [facility] Last Admin: 07/29/18 08:27 Dose: 40 mg Clonidine (Catapres) 0.1 mg PO Q4H PRN PRN Reason: SBP Greater Than 170 Last Admin: 07/25/18 10:48 Dose: 0.1 mg Dexamethasone (Decadron) 4 mg PO TID [facility] Last Admin: 07/29/18 21:52 Dose: 4 mg Famotidine (Pepcid) 20 mg PO BID [facility] Last Admin: 07/29/18 21:52 Dose: 20 mg Hydralazine HCl (Apresoline) 10 mg SLOW IVP Q6H PRN PRN Reason: SBP Greater Than 170 Last Admin: 07/18/18 04:31 Dose: 10 mg Hydrochlorothiazide (Hydrochlorothiazide) 12.5 mg PO DAILY [facility] Last Admin: 07/29/18 08:27 Dose: 12.5 mg Nicardipine HCl 25 mg/ Sodium (Chloride) 250 mls @ 0 mls/hr IVPB INF PRN; Protocol PRN Reason: SBP >140 Nebivolol (Bystolic) 5 mg PO DAILY [facility] Last Admin: 07/29/18 08:36 Dose: Not Given Ondansetron HCl (Zofran) 4 mg IVP BIDPRN PRN PRN Reason: Nausea/Vomiting Polyethylene Glycol (Miralax) 17 gm PO DAILY [facility] Last Admin: 07/29/18 08:27 Dose: 17 gm Polyethylene Glycol (Miralax) 17 gm PO DAILYPRN PRN PRN Reason: Constipation Quetiapine Fumarate (Seroquel) 12.5 mg PO HS [facility] Last Admin: 07/29/18 21:52 Dose: 12.5 mg Senna/Docusate Sodium (Senokot S) 1 tab PO BID [facility] Last Admin: 07/29/18 21:51 Dose: 1 tab Sodium Chloride (Flush - Normal Saline) 10 ml IVF PRN PRN PRN Reason: Saline Flush Last Admin: 07/18/18 04:31 Dose: 10 ml
[2018-07-30 04:37] LABS: #Lymphocytes 1.2 thou/uL (1.20-3.40); #Monocytes 1.5 thou/uL (0.11-0.59); #Neutrophils 12.9 thou/uL (1.40-6.50); %Basophils 0.2 % (0.0-1.0); %Eosinophils 0.2 % (0.0-10.0); %Lymphocytes 7.6 % (21.0-51.0); %Monocytes 9.5 % (0.0-10.0); %Neutrophils 82.6 % (42.0-75.0); Anion Gap 16 mmol/L (10-20); BUN (Urea Nitrogen) 45 mg/dL (8.4-25.7); Calc. Creatinine Clearance 83 mL/min (70-130); Calcium 9.7 mg/dL (7.8-10.44); Carbon Dioxide 24 mmol/L (23-31); Chloride 103 mmol/L (98-107); Estimated GFR-MDRD 77; Glucose 103 mg/dL (80-115); Hemoglobin 19.3 g/dL (14.0-18.0); Mean Corpuscular HGB CONC 33.8 g/dL (32.0-36.0); Mean Corpuscular Hemoglobin 32.9 pg (27.0-31.0); Mean Corpuscular Volume 97.2 fL (78.0-98.0); Mean Platelet Volume 11.2 fL (7.4-10.4); Platelet Count 93 thou/uL (130-400); Potassium 3.6 mmol/L (3.5-5.1); RBC Distribution Width 12.4 % (11.5-14.5); Red Blood Cell (RBC) Count 5.87 mill/uL (4.70-6.10); Sodium 139 mmol/L (136-145); White Blood Cell (WBC) Count 15.7 thou/uL (4.8-10.8)
[2018-07-30] MEDS: Dexamethasone 4 MG TAB PO SCH ×3 (08:11→20:15)
[2018-07-30] MEDS: Senokot S 8.6-50 MG TAB PO SCH ×2 (08:11→20:16)
[2018-07-30] MEDS: Hydrochlorothiazide 25 MG TAB PO SCH ×2 (08:11→10:08)
[2018-07-30] MEDS: Allopurinol 100 MG TAB PO SCH (08:11)
[2018-07-30] MEDS: Famotidine 20 MG TAB PO SCH ×2 (08:11→20:15)
[2018-07-30] MEDS: Polyethylene Glycol 3350 17 GM Packet PO SCH (08:11)
[2018-07-30] MEDS: Atorvastatin Calcium 40 MG TAB PO SCH (08:11)
[2018-07-30] MEDS: Amlodipine 10 MG TAB PO SCH ×2 (08:11→10:07)
[2018-07-30] MEDS: Nebivolol HCl 5 MG TAB PO SCH ×2 (08:12→10:09)
--- NOTE | 2018-07-30 19:03 | PDOC.PN ---
- Subjective Encounter Start Date: 07/30/18 Encounter Start Time: 19:00 Subjective: f/u for metastatic melanoma to brain with current XRT/Dexamethasone. -: Minimal responses to questions. - Objective Resuscitation Status - Order Detail: 07/24/18 16:02 Resuscitation Status Routine Resuscitation Status: DNAR: NO Resuscitation Discussed with: Patient, OLGA Reviewed: Yes Vital Signs & Weight: Vital Signs (12 hours) Temp Pulse Resp BP BP Pulse Ox 07/30/18 12:11 68 138/80 07/30/18 10:07 84 168/102 H 07/30/18 08:00 95 07/30/18 07:36 96.7 F L 57 L 16 94/65 95 Weight Admit Weight 204 lb 2.369 oz Weight 183 lb 6.793 oz Most Recent Monitor Data Heart Rate from ECG 40 NIBP 124/63 NIBP BP-Mean 83 Respiration from ECG 13 SpO2 95 I&O: 07/29/18 07/30/18 07/31/18 06:59 06:59 06:59 Intake Total 100 500 Balance 100 500 Result Diagrams: 07/30/18 04:03 07/30/18 04:03 Phys Exam - Physical Examination Constitutional: NAD lethargic HEENT: PERRLA, sclera anicteric, oral pharynx no lesions Neck: no nodes, no JVD, supple, full ROM Respiratory: no wheezing, no rales, no rhonchi, clear to auscultation bilateral S1, S2 Cardiovascular: RRR, no significant murmur, no rub, gallop Gastrointestinal: soft, non-tender, no distention, positive bowel sounds Musculoskeletal: no edema, pulses present expressive aphasia minimally responsive to voice Skin: normal turgor, cap refill <2 seconds Dx/Plan (1) Brain metastases Code(s): C79.31 - SECONDARY MALIGNANT NEOPLASM OF BRAIN Status: Acute Comment: 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, began 2 week XRT on 07/22/18, continue Dexamethasone until course complete (2) Neoplasm of brain causing mass 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 structures Code(s): D49.6 - NEOPLASM OF UNSPECIFIED BEHAVIOR OF BRAIN Status: Acute Comment: XRT started 07/22/18, dexamethasone until finished XRT (3) Tobacco abuse Code(s): Z72.0 - TOBACCO USE Status: Chronic Comment: Tobacco cessation resources (4) Hypertension Code(s): I10 - ESSENTIAL (PRIMARY) HYPERTENSION Status: Chronic Qualifiers: Hypertension type: essential hypertension Qualified Code(s): I10 - Essential (primary) hypertension Comment: Continue Norvasc, Bystolic and HCTZ (5) Alcohol abuse Code(s): F10.10 - ALCOHOL ABUSE, UNCOMPLICATED Status: Chronic Comment: ASE protocol initially now d/c, no withdrawal sx - Plan forensic social worker, DVT proph w/SCDs Continue XRT regimen -: Continue Dexamethasone 4mg TID -: PT/OT -: Palliative care, likely will need hospice care -: Code Status: DNAR * .
[2018-07-31] MEDS: Amlodipine 10 MG TAB PO SCH (08:18)
[2018-07-31] MEDS: Polyethylene Glycol 3350 17 GM Packet PO SCH (08:18)
[2018-07-31] MEDS: Famotidine 20 MG TAB PO SCH ×2 (08:19→20:27)
[2018-07-31] MEDS: Atorvastatin Calcium 40 MG TAB PO SCH (08:19)
[2018-07-31] MEDS: Allopurinol 100 MG TAB PO SCH (08:19)
[2018-07-31] MEDS: Hydrochlorothiazide 25 MG TAB PO SCH (08:20)
[2018-07-31] MEDS: Dexamethasone 4 MG TAB PO SCH ×3 (08:20→20:27)
[2018-07-31] MEDS: Nebivolol HCl 5 MG TAB PO SCH (11:30)
[2018-07-31] MEDS: Senokot S 8.6-50 MG TAB PO SCH ×2 (17:20→20:28)
--- NOTE | 2018-07-31 18:46 | PDOC.PN ---
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 Tolerating small amounts of po intake. - Objective Resuscitation Status - Order Detail: 07/24/18 16:02 Resuscitation Status Routine Resuscitation Status: DNAR: NO Resuscitation Discussed with: Patient, OLGA Reviewed: Yes Vital Signs & Weight: Vital Signs (12 hours) Temp Pulse Resp BP BP Pulse Ox 07/31/18 08:18 77 119/76 07/31/18 08:00 92 L 07/31/18 07:37 97.5 F L 77 16 119/79 92 L Weight Admit Weight 204 lb 2.369 oz Weight 178 lb 9.191 oz Most Recent Monitor Data Heart Rate from ECG 40 NIBP 124/63 NIBP BP-Mean 83 Respiration from ECG 13 SpO2 95 I&O: 07/30/18 07/31/18 08/01/18 06:59 06:59 06:59 Intake Total 500 300 300 Balance 500 300 300 Result Diagrams: 07/30/18 04:03 07/30/18 04:03 Phys Exam - Physical Examination lethargic, expressive aphasia HEENT: PERRLA, sclera anicteric, oral pharynx no lesions Neck: no nodes, no JVD, supple, full ROM Respiratory: no wheezing, no rales, no rhonchi, clear to auscultation bilateral S1, S2 Cardiovascular: RRR, no significant murmur, no rub, gallop Gastrointestinal: soft, non-tender, no distention, positive bowel sounds Musculoskeletal: no edema, pulses present R hemiparesis Moves PORSCHE/LLE Skin: normal turgor, cap refill <2 seconds Dx/Plan (1) Brain metastases Code(s): C79.31 - SECONDARY MALIGNANT NEOPLASM OF BRAIN Status: Acute Comment: 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, began 2 week XRT on 07/22/18, continue Dexamethasone until course complete, anticipating completion on 08/03/18 (2) Neoplasm of brain causing mass 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 structures Code(s): D49.6 - NEOPLASM OF UNSPECIFIED BEHAVIOR OF BRAIN Status: Acute Comment: XRT started 07/22/18, dexamethasone until finished XRT (3) Tobacco abuse Code(s): Z72.0 - TOBACCO USE Status: Chronic Comment: Tobacco cessation resources (4) Hypertension Code(s): I10 - ESSENTIAL (PRIMARY) HYPERTENSION Status: Chronic Qualifiers: Hypertension type: essential hypertension Qualified Code(s): I10 - Essential (primary) hypertension Comment: Continue Norvasc, Bystolic and HCTZ (5) Alcohol abuse Code(s): F10.10 - ALCOHOL ABUSE, UNCOMPLICATED Status: Chronic Comment: ASE protocol initially now d/c, no withdrawal sx - Plan PT/OT, social group worker, speech therapy, DVT proph w/SCDs Continue XRT to be completed on 08/02/18 -: Plan for SNF placement likely [facility] -: Code Status: DNAR -: Continue Dexamethasone until completion of XRT -: Likely will need to consider outpt hospice * .
[2018-08-01] MEDS: Hydrochlorothiazide 25 MG TAB PO SCH (10:09)
[2018-08-01] MEDS: Nebivolol HCl 5 MG TAB PO SCH (10:10)
[2018-08-01] MEDS: Amlodipine 10 MG TAB PO SCH (10:11)
[2018-08-01] MEDS: Senokot S 8.6-50 MG TAB PO SCH ×2 (10:15→20:01)
[2018-08-01] MEDS: Polyethylene Glycol 3350 17 GM Packet PO SCH (10:15)
[2018-08-01] MEDS: Dexamethasone 4 MG TAB PO SCH ×3 (10:18→20:02)
[2018-08-01] MEDS: Atorvastatin Calcium 40 MG TAB PO SCH (10:18)
[2018-08-01] MEDS: Famotidine 20 MG TAB PO SCH ×2 (10:21→20:01)
[2018-08-01] MEDS: Allopurinol 100 MG TAB PO SCH (10:22)
--- NOTE | 2018-08-01 12:23 | PDOC.PN ---
- Subjective Encounter Start Date: 08/01/18 Encounter Start Time: 12:21 Mr. Fernández was seen today in follow-up of malignant melanoma with brain metastasis. He has aphasia and is unable to speak. He does not track me, and appears to neglect his left side. - Objective Resuscitation Status - Order Detail: 07/24/18 16:02 Resuscitation Status Routine Resuscitation Status: DNAR: NO Resuscitation Discussed with: Patient, MAR Reviewed: Yes Vital Signs & Weight: Vital Signs (12 hours) Temp Pulse Resp BP Pulse Ox 08/01/18 10:11 74 08/01/18 08:00 93 L 08/01/18 07:23 96.8 F L 74 16 131/88 93 L Weight Admit Weight 204 lb 2.369 oz Weight 178 lb 9.191 oz Most Recent Monitor Data Heart Rate from ECG 40 NIBP 124/63 NIBP BP-Mean 83 Respiration from ECG 13 SpO2 95 I&O: 07/31/18 08/01/18 08/02/18 06:59 06:59 06:59 Intake Total 300 300 Balance 300 300 Result Diagrams: 07/30/18 04:03 07/30/18 04:03 Phys Exam - Physical Examination HEENT: PERRLA Respiratory: no wheezing, no rales, no rhonchi, clear to auscultation bilateral Cardiovascular: RRR, no significant murmur, no rub Gastrointestinal: soft, non-tender, no distention, positive bowel sounds Musculoskeletal: no edema + left sided weakness. Dx/Plan (1) Brain metastases Code(s): C79.31 - SECONDARY MALIGNANT NEOPLASM OF BRAIN Status: Acute Comment: 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, began 2 week XRT on 07/22/18, continue Dexamethasone until course complete, anticipating completion on 08/03/18 (2) Malignant melanoma Code(s): C43.9 - MALIGNANT MELANOMA OF SKIN, UNSPECIFIED Status: Acute (3) Hypertension Code(s): I10 - ESSENTIAL (PRIMARY) HYPERTENSION Status: Chronic Qualifiers: Hypertension type: essential hypertension Qualified Code(s): I10 - Essential (primary) hypertension Comment: Continue Norvasc, Bystolic and HCTZ - Plan * Malignant Melanoma with brain metastasis- continue XRT. He will receive his last treatment tomorrow * Continue Decadron * HTN- blood pressure is controlled. * plan is for transition to [facility] at discharge
--- NOTE | 2018-08-01 12:29 | PRG ---
DATE OF SERVICE: 08/01/2018 SUBJECTIVE: Mr. Fernández is alert today, but is not following commands or answering questions. Last week, he was answering questions "yes or no." Today, he hardly makes eye contact when spoken to. He is noncommunicative to all questions. He does not seem to be having any pain. OBJECTIVE: VITAL SIGNS: Height 65 inches, weight 178 pounds, blood pressure 139/91, pulse is 75, respirations 16, temperature 96.4, and O2 saturation 99%. GENERAL: He is alert, but not oriented. He is not following commands. Karnofsky performance status is 30%. NEUROLOGIC: He does move his right side. However, he does not move his left arm or his left leg. Again, he is alert and awake, but not answering questions or responding to commands. LABORATORY DATA: CBC on 07/30/2018 revealed a white blood cell count of 15,700 with a hemoglobin of 19.3, hematocrit of 57.1, and platelet count of 93,000. Chemistry group showed fairly normal electrolytes. ASSESSMENT: Mr. Fernández clinically appears to be declining. He is alert, but not responsive like he was last week. His disorientation and confusion have worsened. PLAN: His prognosis is very poor given the extent of his metastatic disease in the brain. He will finish his radiation therapy tomorrow. I would continue his dexamethasone at the current dose. Unless he has any options remaining with immunotherapy, his long-term prognosis is extremely poor. He has declined despite radiation therapy. If he has no other treatment options after his radiation is completed, his best option may be hospice care. Currently, no family is available to discuss this with, but I am available to discuss this with them if necessary. Job ID: [id number]
[2018-08-02] MEDS: Amlodipine 10 MG TAB PO SCH (08:51)
[2018-08-02] MEDS: Atorvastatin Calcium 40 MG TAB PO SCH (08:51)
[2018-08-02] MEDS: Dexamethasone 4 MG TAB PO SCH ×3 (08:51→20:04)
[2018-08-02] MEDS: Allopurinol 100 MG TAB PO SCH (08:51)
[2018-08-02] MEDS: Nebivolol HCl 5 MG TAB PO SCH (08:52)
[2018-08-02] MEDS: Hydrochlorothiazide 25 MG TAB PO SCH (08:52)
[2018-08-02] MEDS: Famotidine 20 MG TAB PO SCH ×2 (08:52→20:04)
[2018-08-02] MEDS: Senokot S 8.6-50 MG TAB PO SCH ×2 (08:53→20:03)
[2018-08-02] MEDS: Polyethylene Glycol 3350 17 GM Packet PO SCH (08:53)
--- NOTE | 2018-08-02 15:40 | PDOC.PN ---
- Subjective Encounter Start Date: 08/02/18 Encounter Start Time: 07:15 Mr. Fernández was seen today in follow-up of malignant melanoma. He is unchanged. He is non-b=verbal, but he did make better eye contact this morning. - Objective Resuscitation Status - Order Detail: 07/24/18 16:02 Resuscitation Status Routine Resuscitation Status: DNAR: NO Resuscitation Discussed with: Patient, MAR Reviewed: Yes Vital Signs & Weight: Vital Signs (12 hours) Temp Pulse Resp BP Pulse Ox 08/02/18 08:51 79 08/02/18 08:00 92 L 08/02/18 07:21 97.0 F L 79 16 137/93 H 92 L Weight Admit Weight 204 lb 2.369 oz Weight 171 lb 11.2 oz Most Recent Monitor Data Heart Rate from ECG 40 NIBP 124/63 NIBP BP-Mean 83 Respiration from ECG 13 SpO2 95 I&O: 08/01/18 08/02/18 08/03/18 06:59 06:59 06:59 Intake Total 300 750 354 Balance 300 750 354 Result Diagrams: 07/30/18 04:03 07/30/18 04:03 Phys Exam - Physical Examination HEENT: PERRLA Respiratory: no wheezing, no rales, no rhonchi, clear to auscultation bilateral Cardiovascular: RRR, no significant murmur, no rub Gastrointestinal: soft, non-tender, no distention, positive bowel sounds Musculoskeletal: no edema Right sided weakness and aphasia Dx/Plan (1) Brain metastases Code(s): C79.31 - SECONDARY MALIGNANT NEOPLASM OF BRAIN Status: Acute Comment: 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, began 2 week XRT on 07/22/18, continue Dexamethasone until course complete, anticipating completion on 08/03/18 (2) Malignant melanoma Code(s): C43.9 - MALIGNANT MELANOMA OF SKIN, UNSPECIFIED Status: Acute (3) Hypertension Code(s): I10 - ESSENTIAL (PRIMARY) HYPERTENSION Status: Chronic Qualifiers: Hypertension type: essential hypertension Qualified Code(s): I10 - Essential (primary) hypertension Comment: Continue Norvasc, Bystolic and HCTZ - Plan * Patient will complete XRT today for Malignant Melanoma with metastasis to the brain * Continue Decadron as recommended * Overall Prognosis is guarded * HTN- blood pressure is stable * Awaiting long term approval.
[2018-08-03] MEDS: Dexamethasone 4 MG TAB PO SCH ×3 (08:23→20:07)
[2018-08-03] MEDS: Allopurinol 100 MG TAB PO SCH (08:23)
[2018-08-03] MEDS: Amlodipine 10 MG TAB PO SCH (08:23)
[2018-08-03] MEDS: Atorvastatin Calcium 40 MG TAB PO SCH (08:24)
[2018-08-03] MEDS: Famotidine 20 MG TAB PO SCH ×2 (08:24→20:07)
[2018-08-03] MEDS: Hydrochlorothiazide 25 MG TAB PO SCH (08:24)
[2018-08-03] MEDS: Senokot S 8.6-50 MG TAB PO SCH ×2 (08:24→20:07)
[2018-08-03] MEDS: Polyethylene Glycol 3350 17 GM Packet PO SCH (08:24)
[2018-08-03] MEDS: Nebivolol HCl 5 MG TAB PO SCH (08:26)
--- NOTE | 2018-08-03 13:57 | PDOC.PN ---
- Subjective Encounter Start Date: 08/03/18 Encounter Start Time: 13:50 Subjective: f/u metastic melanoma with brain involvement. Remains the same -: per nursing and family report. Completed XRT but no specific change -: clinically. - Objective Resuscitation Status - Order Detail: 07/24/18 16:02 Resuscitation Status Routine Resuscitation Status: DNAR: NO Resuscitation Discussed with: Patient, MAR Reviewed: Yes Vital Signs & Weight: Vital Signs (12 hours) Temp Pulse Resp BP BP BP Pulse Ox 08/03/18 11:45 98.5 F 82 16 142/66 H 95 08/03/18 08:23 86 136/97 H 08/03/18 08:00 98.3 F 85 18 136/97 H 94 L Weight Admit Weight 204 lb 2.369 oz Weight 170 lb 6.4 oz Most Recent Monitor Data Heart Rate from ECG 40 NIBP 124/63 NIBP BP-Mean 83 Respiration from ECG 13 SpO2 95 I&O: 08/02/18 08/03/18 08/04/18 06:59 06:59 06:59 Intake Total 750 474 Balance 750 474 Result Diagrams: 07/30/18 04:03 07/30/18 04:03 Phys Exam - Physical Examination Constitutional: NAD aphasic HEENT: PERRLA, sclera anicteric, oral pharynx no lesions Neck: no nodes, no JVD, supple, full ROM Respiratory: no wheezing, no rales, no rhonchi, clear to auscultation bilateral S1, S2 Cardiovascular: RRR, no significant murmur, no rub, gallop Gastrointestinal: soft, non-tender, no distention, positive bowel sounds Musculoskeletal: no edema, pulses present R hemiparesis, aphasic PORSCHE/LLE movement alert, does not track consistently with eyes Skin: normal turgor, cap refill <2 seconds Dx/Plan (1) Brain metastases Code(s): C79.31 - SECONDARY MALIGNANT NEOPLASM OF BRAIN Status: Acute Comment: Metastastic melanoma, began 2 week XRT on 07/22/18, continue Dexamethasone until course complete, anticipating completion on 08/03/18 (2) Neoplasm of brain causing mass 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 structures Code(s): D49.6 - NEOPLASM OF UNSPECIFIED BEHAVIOR OF BRAIN Status: Acute Comment: XRT started 07/22/18, dexamethasone until finished XRT (3) Tobacco abuse Code(s): Z72.0 - TOBACCO USE Status: Chronic Comment: Tobacco cessation resources (4) Hypertension Code(s): I10 - ESSENTIAL (PRIMARY) HYPERTENSION Status: Chronic Qualifiers: Hypertension type: essential hypertension Qualified Code(s): I10 - Essential (primary) hypertension Comment: Continue Norvasc, Bystolic and HCTZ (5) Alcohol abuse Code(s): F10.10 - ALCOHOL ABUSE, UNCOMPLICATED Status: Chronic Comment: ASE protocol initially now d/c, no withdrawal sx - Plan PT/OT, social group worker, DVT proph w/SCDs Continue Dexamethasone -: Pain control as clinically indicated -: Consult for Hospice evaluation -: Denied for SNF care * .
[2018-08-04] MEDS: Amlodipine 10 MG TAB PO SCH (08:32)
[2018-08-04] MEDS: Dexamethasone 4 MG TAB PO SCH ×3 (08:32→20:20)
[2018-08-04] MEDS: Famotidine 20 MG TAB PO SCH ×2 (08:32→20:20)
[2018-08-04] MEDS: Nebivolol HCl 5 MG TAB PO SCH (08:32)
[2018-08-04] MEDS: Allopurinol 100 MG TAB PO SCH (08:32)
[2018-08-04] MEDS: Hydrochlorothiazide 25 MG TAB PO SCH (08:32)
[2018-08-04] MEDS: Atorvastatin Calcium 40 MG TAB PO SCH (08:32)
[2018-08-04] MEDS: Senokot S 8.6-50 MG TAB PO SCH ×2 (08:34→20:20)
[2018-08-04] MEDS: Polyethylene Glycol 3350 17 GM Packet PO SCH (08:34)
--- NOTE | 2018-08-04 17:15 | PDOC.PN ---
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 Remains aphasic and -: unable to stand, R hemiparesis. No new changes per nursing report. - Objective Resuscitation Status - Order Detail: 07/24/18 16:02 Resuscitation Status Routine Resuscitation Status: DNAR: NO Resuscitation Discussed with: Patient, OLGA Reviewed: Yes Vital Signs & Weight: Vital Signs (12 hours) Temp Pulse Resp BP BP Pulse Ox 08/04/18 08:32 97 120/91 H 08/04/18 08:00 96 08/04/18 07:45 96.6 F L 97 16 120/91 H 96 Weight Admit Weight 204 lb 2.369 oz Weight 166 lb 14.4 oz Most Recent Monitor Data Heart Rate from ECG 40 NIBP 124/63 NIBP BP-Mean 83 Respiration from ECG 13 SpO2 95 I&O: 08/03/18 08/04/18 08/05/18 06:59 06:59 06:59 Intake Total 474 500 Balance 474 500 Result Diagrams: 07/30/18 04:03 07/30/18 04:03 Phys Exam - Physical Examination Constitutional: NAD alert, occasional tracking with eyes HEENT: PERRLA, sclera anicteric, oral pharynx no lesions Neck: no nodes, no JVD, supple, full ROM Respiratory: no wheezing, no rales, no rhonchi, clear to auscultation bilateral S1, S2 Cardiovascular: RRR, no significant murmur, no rub, gallop Gastrointestinal: soft, non-tender, no distention, positive bowel sounds Musculoskeletal: no edema, pulses present R hemiparesis, aphasic moves PORSCHE/LLE Skin: normal turgor, cap refill <2 seconds Dx/Plan (1) Brain metastases Code(s): C79.31 - SECONDARY MALIGNANT NEOPLASM OF BRAIN Status: Acute Comment: Metastastic melanoma, began 2 week XRT on 07/22/18, continue Dexamethasone until course complete, anticipating completion on 08/03/18 (2) Neoplasm of brain causing mass 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 structures Code(s): D49.6 - NEOPLASM OF UNSPECIFIED BEHAVIOR OF BRAIN Status: Acute Comment: XRT started 07/22/18, dexamethasone until finished XRT (3) Tobacco abuse Code(s): Z72.0 - TOBACCO USE Status: Chronic Comment: Tobacco cessation resources (4) Hypertension Code(s): I10 - ESSENTIAL (PRIMARY) HYPERTENSION Status: Chronic Qualifiers: Hypertension type: essential hypertension Qualified Code(s): I10 - Essential (primary) hypertension Comment: Continue Norvasc, Bystolic and HCTZ (5) Alcohol abuse Code(s): F10.10 - ALCOHOL ABUSE, UNCOMPLICATED Status: Chronic Comment: ASE protocol initially now d/c, no withdrawal sx - Plan plan discussed w/ family, PT/OT, multicultural services librarian, DVT proph w/SCDs Stable currently -: Consult Hospice for evaluation and fci options -: Continue Dexamethasone 4mg TID -: Continue Seroquel HS -: Nutritional supplementation with Ensure/Mighty Shakes * Poor prognosis * Code Status: ALONZO
[2018-08-05] MEDS: Dexamethasone 4 MG TAB PO SCH ×3 (09:07→21:03)
[2018-08-05] MEDS: Amlodipine 10 MG TAB PO SCH (09:07)
[2018-08-05] MEDS: Atorvastatin Calcium 40 MG TAB PO SCH (09:07)
[2018-08-05] MEDS: Allopurinol 100 MG TAB PO SCH (09:07)
[2018-08-05] MEDS: Nebivolol HCl 5 MG TAB PO SCH (09:08)
[2018-08-05] MEDS: Senokot S 8.6-50 MG TAB PO SCH ×2 (09:08→21:09)
[2018-08-05] MEDS: Hydrochlorothiazide 25 MG TAB PO SCH (09:08)
[2018-08-05] MEDS: Polyethylene Glycol 3350 17 GM Packet PO SCH (09:08)
[2018-08-05] MEDS: Famotidine 20 MG TAB PO SCH ×2 (09:08→21:03)
[2018-08-05] MEDS ORDERED: diphenhydrAMINE 25 MG CAP PO PRN (11:15)
[2018-08-05 11:32] VITALS: BMI 19.4
[2018-08-05] MEDS ORDERED: diphenhydrAMINE 12.5 MG/5 ML UDCUP PO PRN (17:06)
--- NOTE | 2018-08-05 17:52 | PDOC.PN ---
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 Remains aphasic, R flaccid -: hemiplegia. Family deciding on NH with hospice care. - Objective Resuscitation Status - Order Detail: 07/24/18 16:02 Resuscitation Status Routine Resuscitation Status: DNAR: NO Resuscitation Discussed with: Patient, OLGA Reviewed: Yes Vital Signs & Weight: Vital Signs (12 hours) Temp Pulse Resp BP BP Pulse Ox 08/05/18 09:07 101 H 126/96 H 08/05/18 08:00 97.2 F L 101 H 18 126/96 H 93 L Weight Admit Weight 204 lb 2.369 oz Weight 164 lb Most Recent Monitor Data Heart Rate from ECG 40 NIBP 124/63 NIBP BP-Mean 83 Respiration from ECG 13 SpO2 95 I&O: 08/04/18 08/05/18 08/06/18 06:59 06:59 06:59 Intake Total 1000 Balance 1000 Result Diagrams: 07/30/18 04:03 07/30/18 04:03 Phys Exam - Physical Examination Constitutional: NAD alert, limited sustained eye tracking HEENT: PERRLA, sclera anicteric, oral pharynx no lesions Neck: no nodes, no JVD, supple, full ROM Respiratory: no wheezing, no rales, no rhonchi, clear to auscultation bilateral S1, S2 Cardiovascular: RRR, no significant murmur, no rub, gallop Gastrointestinal: soft, non-tender, no distention, positive bowel sounds Musculoskeletal: no edema, pulses present aphasic, R flaccid hemiparesis Skin: normal turgor, cap refill <2 seconds Dx/Plan (1) Brain metastases Code(s): C79.31 - SECONDARY MALIGNANT NEOPLASM OF BRAIN Status: Acute Comment: Metastastic melanoma, began 2 week XRT on 07/22/18, continue Dexamethasone until course complete, anticipating completion on 08/03/18, end- stage process (2) Neoplasm of brain causing mass 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 structures Code(s): D49.6 - NEOPLASM OF UNSPECIFIED BEHAVIOR OF BRAIN Status: Acute Comment: XRT started 07/22/18, dexamethasone until finished XRT, see above (3) Tobacco abuse Code(s): Z72.0 - TOBACCO USE Status: Chronic Comment: Tobacco cessation resources (4) Hypertension Code(s): I10 - ESSENTIAL (PRIMARY) HYPERTENSION Status: Chronic Qualifiers: Hypertension type: essential hypertension Qualified Code(s): I10 - Essential (primary) hypertension Comment: Continue Norvasc, Bystolic and HCTZ (5) Alcohol abuse Code(s): F10.10 - ALCOHOL ABUSE, UNCOMPLICATED Status: Chronic Comment: ASE protocol initially now d/c, no withdrawal sx - Plan plan discussed w/ family, social economist, DVT proph w/SCDs continue supportive mgmt -: Family deciding to pursue Hospice at [facility] -: Code Status: DNAR -: Poor prognosis -: Likely can d/c in 24-48h * .
[2018-08-06 07:29] VITALS: BP 138/84; TEMP 96.6
[2018-08-06] MEDS: Allopurinol 100 MG TAB PO SCH (08:54)
[2018-08-06] MEDS: Famotidine 20 MG TAB PO SCH (08:54)
[2018-08-06] MEDS: Hydrochlorothiazide 25 MG TAB PO SCH (08:54)
[2018-08-06] MEDS: Atorvastatin Calcium 40 MG TAB PO SCH (08:54)
[2018-08-06] MEDS: Nebivolol HCl 5 MG TAB PO SCH (08:55)
[2018-08-06] MEDS: Polyethylene Glycol 3350 17 GM Packet PO SCH (08:56)
[2018-08-06] MEDS: Senokot S 8.6-50 MG TAB PO SCH (08:56)
[2018-08-06] MEDS: Dexamethasone 4 MG TAB PO SCH ×2 (08:58→15:34)
[2018-08-06] MEDS: Amlodipine 10 MG TAB PO SCH (09:01)
--- NOTE | 2018-08-06 12:47 | PDOC.PALF ---
Purpose of Conference: Discuss Hospice care/End of life/Disease Trajectory related to terminal diagnosis Care Providers Present: Daniela TAVERAS, Daniela Guy supervisor special effects Family Members Present: Patient , sons Parmjit and Terry, daughter Meeting Comments: Family expressed patient wishes in relation to , cremation. Asked appropriate questions in relation to hospice, and care provided. Goals of Care: Optimal end of life through management of symptoms related to terminal condition paired with care of group home facility and hospice. Summary: Family interviewing Nursing homes in [facility] as it is located between family members. Will also interview Hospices ([facility] and [facility]). Will decide today in relation to facility and hospice. Family encouraged to call with further questions and needed support. Total Time Spent with Family: 50min
--- NOTE | 2018-08-06 23:02 | DIS ---
DATE OF ADMISSION: 07/10/2018 DATE OF DISCHARGE: 08/06/2018 DISCHARGE DIAGNOSES: 1. Metastatic melanoma to the brain. 2. Expressive aphasia secondary to #1. 3. Right flaccid hemiparesis. 4. Tobacco abuse. 5. Hypertension. 6. Alcohol use. CONSULTATIONS: 1. Dr. Cornejo with Medical Oncology Service. 2. Dr. Rivera and Dr. Stout with Neurosurgical Service. PERTINENT LAB AND X-RAY FINDINGS: AST ranged between 48 to 58, ALT ranged between 56 to 57, alkaline phosphatase 85. CBC showed white blood cell count ranged between 8.3 to 15.7, hemoglobin ranged between 15.[address] of the brain without contrast dated 07/10/2018, showed left cerebral hemispheric mass centered in the left basal ganglia with vasogenic edema and internal hemorrhage with extension into the left medial temporal lobe with mild midline shift. Portable chest x-ray dated 07/10/2018, showed no acute cardiopulmonary process. CT of the chest, abdomen and pelvis dated 07/10/2018, showed no focal mass or lesions. Fatty infiltration of the liver. No evidence of bowel obstruction. MRI of the brain dated 07/11/2018, showed multifocal intracranial lesions consistent with metastatic process. Mass-effect noted with rightward subfalcine herniation with mild intraventricular hemorrhagic extension. CT of the brain without contrast dated 07/11/2018, showed 3.6 x 3.5 x 4.5 fluid level and hematoma within the right basal ganglia and mild surrounding edema. HOSPITAL COURSE: The patient was admitted to the Medical Oncology Unit after initially presenting with altered mental status and dysarthria. The patient underwent CT imaging of the brain showing findings as described previously with left-sided cystic mass in the left basal ganglia with surrounding vasogenic edema and hemorrhagic component. The patient was initially treated with IV Decadron and monitored in the critical care unit. The patient underwent subsequent evaluation by the neurosurgical service including MRI imaging of the brain confirming evidence of likely metastatic process with associated vasogenic edema. The patient underwent subsequent biopsy of the intracranial mass showing poorly differentiated malignant neoplasm consistent with a metastatic melanoma. The patient was evaluated by the Radiation Oncology Service with recommendations for focal radiation treatments. The patient underwent whole-brain radiation therapy, completing an entire course during the hospital stay without improvement of functional status or resolution of neurologic deficits to include worsening aphasia and right flaccid hemiparesis. The patient's options were limited for any further treatment as the patient had advanced metastatic melanoma with progressive neurologic deficits despite radiation therapy. Multiple meetings were obtained with the family regarding palliative and hospice care as well as futility of any further intervention or treatment. The family decided to pursue hospice care without any further medical or surgical options for the patient. The patient has been accepted to inpatient hospice and will transition on 08/06/2018. I have examined the patient at the time of discharge and discussed followup instructions. The patient is ready for discharge on 08/06/2018. DISCHARGE MEDICATIONS: 1. Allopurinol 200 mg p.o. daily. 2. Amlodipine 10 mg p.o. daily. 3. Lipitor 40 mg p.o. daily. 4. Bystolic 10 mg p.o. daily. 5. Dexamethasone 4 mg p.o. t.i.d. 6. Seroquel 12.5 mg p.o. at bedtime. FOLLOWUP: The patient is to follow up with [facility] on 08/06/2018. CONDITION AT THE TIME OF DISCHARGE: Guarded. PROGNOSIS: Poor. DIET: Regular as tolerated. ACTIVITY: Bed-bound status. CODE STATUS: Do not attempt resuscitation. DISPOSITION: Discharged to inpatient hospice on 08/06/2018. TIME SPENT: Total time preparing and coordinating discharge, 33 minutes. Job ID: [id number]
--- NOTE | 2018-08-07 15:32 | OP ---
DATE OF PROCEDURE: 07/15/2018 PROCEDURE PERFORMED: Left stereotactic brain biopsy. GUNSTOCK SPRAY UNIT ADJUSTER: Bret. DESCRIPTION OF PROCEDURE: The patient was brought to the operating room and intubated. Head was fixed in a Ferdinand head golf professional, turned to the right, exposing the left frontotemporal region. We registered the stereotactic navigation system for the patient's head and used this to plan the incision and the procedure. A small incision was made and a ashli hole was performed in standard fashion. The dura was coagulated and divided. The stereotactic arm was brought into the field and a stereotactic biopsy was performed using the navigation system without difficulty. Multiple specimens were obtained and sent to Pathology and initial review suggested pathologic tissue. The wound was then extensively irrigated. The needle was removed and the wound was closed in anatomic layers. Job ID: [id number]
== END 2018-08-06 18:30 | disposition hospice, inpatient (51) | DRG 25 ==
LOC: ERS 21:45 → CCU 23:37 → 2SE 07-12 16:55 → CCU 07-15 09:30 → 2SE 07-16 15:49 → ONC 07-17 16:33
PROVIDERS: ADMIT Neurological Surgery; ATTEND Neurological Surgery
PROC: 00B03ZX Excision of Brain, Percutaneous Approach, Diagnostic (ICD-10-PCS; principal; 2018-07-15)
DX: C79.31 Secondary malignant neoplasm of brain (principal); G93.6 Cerebral edema; R47.01 Aphasia; G93.40 Encephalopathy, unspecified; I62.9 Nontraumatic intracranial hemorrhage, unspecified; G81.01 Flaccid hemiplegia affecting right dominant side; Z66 Do not resuscitate; Z51.5 Encounter for palliative care; F17.210 Nicotine dependence, cigarettes, uncomplicated; I10 Essential (primary) hypertension; F10.10 Alcohol abuse, uncomplicated; C43.9 Malignant melanoma of skin, unspecified; G89.29 Other chronic pain; E78.5 Hyperlipidemia, unspecified; R47.81 Slurred speech; E78.00 Pure hypercholesterolemia, unspecified; Z98.890 Other specified postprocedural states; Z88.8 Allergy status to other drugs, medicaments and biological substances
CPT/HCPCS: 36415; 70450; 70553; 71045; 71260; 74177; 77014; 77280; 77290; 77307; 77334; 77336; 77412; 77417; 80048; 80053; 80076; 81003; 81210; 82550; 84484; 85025; 85610; 85730; 86850; 86900; 86901; 88307; 88331; 88334; 88341; 88342; 88360; 93005; 96374; J0360; J0690; J1100; J2001; J2060; J2405; J2704; J3010; J3490; J7050; J8540; Q0163; S0028